=== PATIENT | male | born 1975 | race Caucasian/White ===

== ENCOUNTER → 2018-01-21 13:31 | Outpatient (CLI) | payer OTHER, SELFPAY | PROVIDERS: Family Provider Family Medicine; PCP Family Medicine; Visit Provider Physician Assistant | DX: L98.9 Disorder of the skin and subcutaneous tissue, unspecified (principal) | CPT/HCPCS: 87070; 87075; 87205 ==

== ENCOUNTER → 2019-03-25 09:58 | Outpatient (CLI) | payer OTHER, SELFPAY | PROVIDERS: Family Provider Family Medicine; PCP Family Medicine; Visit Provider Nurse Practitioner | DX: J02.9 Acute pharyngitis, unspecified (principal) | CPT/HCPCS: 87070 ==

== ENCOUNTER 2022-03-24 23:30 | Emergency (ER) | payer OTHER, MEDICAID, SELFPAY ==
[2022-03-24 23:41] VITALS: BP 134/89; PULSE 71; RESP 16; TEMP 36.4; O2SAT 98; BMI 26.3
--- NOTE | 2022-03-25 02:09 | ED.WOUNDLAC ---
HPI - Wound/Laceration General Chief Complaint: Wound/Laceration Stated Complaint: right arm pit/deep laceration injury Time Seen by Provider: 03/25/22 02:05 Source: patient Mode of arrival: Ambulatory History of Present Illness HPI narrative: This is a 47-year-old male with no reported medical issues. Patient states tetanus is up-to-date. He was doing a [employer] workout jumping up onto a box that was about 2-3 feet off the ground. He lost his balance when his foot slipped off and fell onto a squat bar that had a hook that was sharp and about 2-3 cm wide in his right axilla. Patient states he pulled himself off of that. He states it bled a little bit but not a lot at the scene. Patient states the areas painful but he denies any numbness, tingling or weakness. He denies any difficulty with movement. He denies any chest pain or shortness of breath. He denies any other symptoms he felt very lightheaded immediately after it happened when he saw the injury but states that past and he has not felt that way since then. Denies any other GI or urinary symptoms. He states he is had multiple orthopedic injuries in the past he is had stitches, he is had knee surgery and hernia surgery as a child. Patient denies allergies to medications. Denies tobacco, alcohol or illicit use currently. Related Data Previous Rx's Medication Instructions Recorded doxycycline hyclate 100 mg tablet 100 mg PO BID 7 days #14 tabs 03/25/22 tramadol 50 mg tablet 50 mg PO Q6H PRN pain #10 tabs 03/25/22 Allergies Allergy/AdvReac Type Severity Reaction Status Date / Time No Known Drug Allergies Allergy Verified 03/24/22 23:41 Review of Systems Review of Systems ROS Unobtainable: All systems reviewed & are unremarkable except as noted in HPI and below Patient History Social History Smoking Status: Former smoker Smoking Status: Former smoker Substance Use Type: does not use Exam Narrative Exam Narrative: GENERAL: Alert and oriented x three, mild distress HEENT: Head normocephalic, atraumatic, EOMI, pupils reactive, face symmetric, moist mucous membranes NECK: Supple, full range of motion CARDIOVASCULAR: Regular rate and rhythm without murmurs, rubs or gallops. RESPIRATORY: Breath sounds equal bilaterally, no wheezes rales or rhonchi. ABDOMEN: Soft, nontender. Normoactive bowel sounds all 4 quadrants. No guarding or rebound, rigidity, no mass : No CVA tenderness EXTREMITIES: Normal range of motion, no clubbing or edema. Neurovascularly intact. Patient has a deep laceration of the right axilla distal to the crease, it is crescent shaped flap that is slightly irregular. Patient's goes through the subcutaneous tissue. Muscle is exposed but appears intact as well as fascial layer. I do not visualize any blood vessels, I do not visualize any tendons or ligaments and patient has full range of motion. The way the laceration lays the subcutaneous tissue appears to have pulled away from the fascia. NEUROLOGICAL: Cranial nerves II through XII grossly intact. Moving all extremities SKIN: Warm, dry, no petechiae, no rashes or lesions. Initial Vital Signs Initial Vital Signs: Vital Signs Temperature 97.6 F 03/24/22 23:41 Pulse Rate 71 03/24/22 23:41 Respiratory Rate 16 03/24/22 23:41 Blood Pressure 134/89 03/24/22 23:41 Pulse Oximetry 98 03/24/22 23:41 Oxygen Delivery Method 03/24/22 23:41 Procedures Laceration Repair Laceration 1: Site: other (right axillla) Size (cm): 5 Description: stellate, flap and irregular Depth: simple, single layer (muscle exposed but intact) Local Anesthetic: lidocaine 1%, lidocaine 2% and bupivacaine 0.5% Amount of anesthesia used (mL): 5 Pre-repair: wound explored, irrigated extensively and deep structures intact Skin layer closed with: nylon Skin layer suture size: 4-0 Number of sutures: 10 Technique: simple, interrupted Course Orders Ordered: ED Orders 03/24/22 23:47 Consult to M[employer]I SITE LEASING CONSULTANT - Office Support Assistant Stat Discontinued Medications Doxycycline Hyclate (Doxycycline Hyclate 100 Mg Tablet) 100 mg PO NOW ONE Stop: 03/25/22 03:11 Lidocaine HCl (Lidocaine 2% Inj Sdv) 10 ml INJ INTRA-OP ONE Stop: 03/25/22 02:21 Tramadol HCl (Tramadol 50 Mg Prepack) 1 bottle MISC SEEINSTR ONE Stop: 03/25/22 03:11 Vital Signs Vital signs: Vital Signs - 8 hr 03/24/22 23:41 03/25/22 04:01 Temperature 97.6 F 97.2 F L Pulse Rate 71 62 Respiratory Rate 16 14 Blood Pressure 134/89 122/64 Pulse Oximetry 98 99 Oxygen Delivery Method Room Air Room Air MDM - Wound/Laceration MDM Narrative Medical decision making narrative: This is a 47-year-old male comes emergency department with complaint of laceration his right axilla it is quite deep the muscle actually appears intact although I can clearly visualize it and is through the skin subcutaneous tissue. Patient started on antibiotics as he seems to be high-risk for infection based on the location, laceration came together quite nicely but because of the area we discussed extensively appropriate range of motion while skin is healing and that he needs to keep his range of motion decreased for the next 3-4 weeks to allow the deeper tissue to heal. We did discuss return precautions. All questions answered. Discharge Plan Departure Patient Disposition: Home Clinical Impression: Laceration of axilla, right Instructions: DI for Laceration Repair Activity Restrictions/Additional Instructions: You have a deep laceration/cut to your right armpit, please follow-up to have her sutures removed in the next 7-10 days. Do not abduct your arm above 45 degrees until your laceration has healed or make large or fast motions at the shoulder. Take antibiotics until completely gone. You can take Tylenol up to a 1000 mg every 6 hours and/or ibuprofen up to 600 mg every 6 hours as needed for pain. If in adequate you can You may take tramadol 1 or 2 tablets every 6 hours as needed for pain. Prescription sent to [facility] pharmacy. Wound Care: Keep wound(s) clean and dry. Wash daily with soap and water only. Do not use over the counter products (alcohol or peroxide)on the wounds unless instructed by a physician. If wound condition worsens (increased/expanding redness, developing fluid blisters, or worsening pain), either contact your doctor for an urgent re-assessment , or return to the Emergency Department. Return to the Emergency Department for any new or worsening symptoms. Return to the ED, urgent care, or vist a primary care doctor for removal or suture or carlos in 7-10 days Return if fever greater than 100.4 Fahrenheit, increased swelling, increasing pain or worsening symptoms such as increased discharge or spreading redness. Prescriptions: New doxycycline hyclate 100 mg tablet 100 mg PO BID 7 Days Qty: 14 0RF tramadol 50 mg tablet 50 mg PO Q6H PRN (Reason: pain) Qty: 10 0RF Referrals: Miscellaneous,Doctor, MD [Primary Care Provider] - Visit Report Forms: Patient Portal/API
[2022-03-25 04:01] VITALS: BP 122/64; PULSE 62; RESP 14; TEMP 36.2; O2SAT 99
== END 2022-03-25 03:40 | disposition home or self-care (01) ==
PROVIDERS: Emergency Provider Emergency Medicine; Family Provider Family Medicine
DX: S41.111A Laceration without foreign body of right upper arm, initial encounter (principal); W17.89XA Other fall from one level to another, initial encounter
CPT/HCPCS: 12002; 99283

== ENCOUNTER 2022-04-11 10:09 | Emergency (ER) | payer OTHER, MEDICAID, SELFPAY ==
[2022-04-11 10:33] VITALS: BP 110/62; PULSE 60; RESP 15; TEMP 36.5; O2SAT 98; BMI 26.3
--- NOTE | 2022-04-11 10:39 | ED.RECABL ---
HPI - Recheck/Abnormal Lab/Rx General Chief Complaint: Recheck/Abnormal Lab/Rx Stated Complaint: Anny removal Time Seen by Provider: 04/11/22 10:25 Source: patient Mode of arrival: Ambulatory History of Present Illness HPI narrative: 47-year-old male former smoker without chronic medical problems presents for removal of sutures that were placed here on March 25. His initial injury can be noted in that document, however he had been jumping onto a box doing cross fit and slipped and injured himself. He was evaluated, washed out thoroughly, sutures placed and on doxycycline for 7 days. He has some discomfort in the region but denies any redness or swelling, no fever or chills no drainage from the wound and is here for suture removal only. He denies any numbness, tingling or weakness of his arm. Says he had no head neck or back pain Related Data Previous Rx's Medication Instructions Recorded tramadol 50 mg tablet 50 mg PO Q6H PRN pain #10 tabs 03/25/22 Allergies Allergy/AdvReac Type Severity Reaction Status Date / Time No Known Drug Allergies Allergy Verified 04/11/22 10:33 Review of Systems Review of Systems Narrative: GENERAL: Denies chills, fatigue, malaise, fever, sweats. HEENT: Denies sinus pain, ear pain, sore throat, difficulty swallowing, dizziness. RESPIRATORY: Denies dyspnea, cough, wheezing, hemoptysis, sputum. CARDIOVASCULAR: Denies chest pain, palpitations, orthopnea, edema, GASTROINTESTINAL: Denies nausea, vomiting, abdominal pain, diarrhea, constipation, melena. : Denies dysuria, frequency, incontinence, hematuria, urinary retention. MUSCULOSKELETAL: denies weakness, joint pain, or bony pain SKIN: See HPI NEUROLOGIC: Denies weakness, headache, numbness, change in speech, confusion, seizures, incoordination. PSYCHIATRIC: No concerning psychosocial issues. 12 point review of systems is negative except for those stated above Patient History Social History Smoking Status: Former smoker Smoking Status: Former smoker alcohol intake frequency: holidays/special occasions only Substance Use Type: does not use Exam Narrative Exam Narrative: GEN: AOx3 and in mild distress EYES: Pupils are equal, round, and reactive to light and accommodation. Extraoccular muscles are intact bilaterally. There is no subconjunctival hemorrhage or exudate. CHEST: Lungs are clear to auscultation bilaterally and free of wheezes, rales, or rhonchi. Heart rate is regular rhythm, there are no murmurs, clicks, rubs, or gallops. There is no chest wall tenderness. ABD: Abdomen is soft and nontender. There is no guarding or rebound. Bowel sounds are normal in all 4 quadrants. There is no mass or organomegaly. EXT: Right axilla with appropriately healing wound, no dehiscence, redness, warmth, drainage, induration or fluctuance. No lymphangitis. Very reassuring exam. Full painless ROM of all extremities with no loss of sensation or strength. SKIN: Warm, pink, and dry. No erythema or rash Initial Vital Signs Initial Vital Signs: Vital Signs Temperature 97.7 F 04/11/22 10:33 Pulse Rate 60 04/11/22 10:33 Respiratory Rate 15 04/11/22 10:33 Blood Pressure 110/62 04/11/22 10:33 Pulse Oximetry 98 04/11/22 10:33 Oxygen Delivery Method 04/11/22 10:33 Course Course Course Narrative: Sutures appropriate for removal Vital Signs Vital signs: Vital Signs - 8 hr 04/11/22 10:33 Temperature 97.7 F Pulse Rate 60 Respiratory Rate 15 Blood Pressure 110/62 Pulse Oximetry 98 Oxygen Delivery Method Room Air MDM - Recheck/Abnormal Lab/Rx MDM Narrative Medical decision making narrative: 47-year-old male returns for suture removal after they had been placed here on March 25 Patient reports no complaints, no redness, drainage Sutures appropriate for removal, easily taken out by nursing staff Patient understands and agrees with diagnosis and plan. Return precautions given and questions answered to their apparent satisfaction Discharge Plan Departure Patient Disposition: Home Clinical Impression: Laceration of axilla, right, Encounter for removal of sutures Instructions: DI for Suture Removal Activity Restrictions/Additional Instructions: *You have been diagnosed with [wound check right axilla laceration] *What to do: *Please continue to take your regular medications as directed. Please keep the wound clean and dry to the best of your ability. Please monitor for signs of infection such as redness to the skin or increasing pain. *Return to Emergency Department if you should have any new, worsening or concerning symptoms, such as [fever greater than 101 F, shaking chills, worsening pain, persistent vomiting or other bothersome symptoms] Prescriptions: No Action tramadol 50 mg tablet 50 mg PO Q6H PRN (Reason: pain) Qty: 10 0RF Referrals: Miscellaneous,Doctor, MD [Primary Care Provider] - Stand Alone Forms: Patient Portal/API
== END 2022-04-11 10:55 | disposition home or self-care (01) ==
PROVIDERS: Emergency Provider Emergency Medicine; Family Provider Family Medicine
DX: Z48.1 Encounter for planned postprocedural wound closure (principal)
CPT/HCPCS: 99281

== ENCOUNTER → 2022-04-18 08:50 | Outpatient (CLI) | payer OTHER, SELFPAY ==
--- NOTE | 2022-04-18 08:54 | DI.RAD.S_ITS ---
PROCEDURE: XR CERVICAL SPINE 2V OR 3V INDICATIONS: neck and right shoulder pain TECHNIQUE: 3 view(s) of the cervical spine were acquired. COMPARISON: [facility], CERVICAL SPINE 2 OR 3 VIEWS, 08/19/2014, 12:42. [facility], CR, CLAVICLE RIGHT 2 VIEWS, 11/10/2007, 9:06. FINDINGS: Bones: No fractures or dislocations to the C7-T1 level. The lateral masses of C1 appear intact on the odontoid view. No suspicious bony lesions. There is moderate disc space narrowing at C4-5, C5-6, C6-7. Soft tissues: No prevertebral soft tissue swelling. IMPRESSION: Mid cervical spine disc space narrowing. Dictated by: Yue Naylor M.D. on 04/18/2022 at 18:24 Approved by: Yue Naylor M.D. on 04/18/2022 at 18:25
--- NOTE | 2022-04-18 08:54 | DI.RAD.S_ITS ---
PROCEDURE: XR SHOULDER RT MIN 2V INDICATIONS: neck and right shoulder pain TECHNIQUE: 3 views of the shoulder were acquired. COMPARISON: None. FINDINGS: Bones: No fractures or dislocations. No suspicious bony lesions. Visualized ribs appear intact. Moderate acromioclavicular narrowing. Soft tissues: No suspicious soft tissue calcifications. IMPRESSION: Mild acromioclavicular narrowing. Dictated by: Yue Naylor M.D. on 04/18/2022 at 18:26 Approved by: Yue Naylor M.D. on 04/18/2022 at 18:27
== END ==
PROVIDERS: Family Provider Family Medicine; Referring Provider Internal Medicine Cardiovascular Disease; Visit Provider Internal Medicine Cardiovascular Disease
DX: M25.511 Pain in right shoulder (principal); M54.2 Cervicalgia; M48.02 Spinal stenosis, cervical region
CPT/HCPCS: 72040; 73030

== ENCOUNTER 2022-09-26 14:33 | Emergency (ER) | payer OTHER, MEDICAID, SELFPAY ==
[2022-09-26 14:33] VITALS: BP 188/78; PULSE 130; RESP 22; TEMP 36.5; O2SAT 100
--- NOTE | 2022-09-26 14:54 | DI.CT.S_ITS ---
PROCEDURE: CT HEAD/BRAIN WO CON INDICATIONS: altered mental status, possible head injury TECHNIQUE: Noncontrast 4.5 mm thick angled axial sections acquired from the foramen magnum to the vertex, with coronal and sagittal reformats. For radiation dose reduction, the following was used: automated exposure control, adjustment of mA and/or kV according to patient size. COMPARISON: None. FINDINGS: Image quality: Excellent. CSF spaces: Basal cisterns are patent. No extra-axial fluid collections. Ventricles are normal in size and shape. Brain: No midline shift. No intracranial masses or hemorrhage. Wheeler-white matter interface is normal. Skull and face: Calvarium and visualized facial bones are intact, without suspicious lesions. Sinuses: Visualized sinuses and mastoids are clear. IMPRESSION: Normal noncontrast head CT, without acute intracranial hemorrhage or other significant acute findings. Dictated by: Franklin Jensen M.D. on 09/26/2022 at 15:30 Approved by: Franklin Jensen M.D. on 09/26/2022 at 15:31
[2022-09-26] MEDS: HALOPERIDOL 5 MG/ML VIAL IM (14:57)
[2022-09-26] MEDS: LORazepam 2 MG/ML INJ IM (14:58)
[2022-09-26] MEDS: diphenhydrAMINE 50 MG/ML VIAL IM (14:58)
[2022-09-26 15:33] LABS: Add Manual Diff / Slide Review NO; Basophils Absolute Auto 100 /uL (0-100); Basophils Percent Auto 0.3 % (0-2); Eosinophils Absolute Auto 0 /uL (0-450); Eosinophils Percent Auto 0.1 % (2-4); Hematocrit 37.3 % (41-53); Hemoglobin 12.8 g/dL (13.5-17.5); Lymphocytes Absolute Auto 1500 /uL (1100-4500); Lymphocytes Percent Auto 10.3 % (25-40); Mean Corpuscular HGB Conc 34.4 % (30-36); Mean Corpuscular Hemoglobin 30.7 PG (26-34); Mean Corpuscular Volume 89.2 fL (80-100); Monocytes Absolute Auto 1100 /uL (0-900); Monocytes Percent Auto 7.7 % (3-14); Neutrophils Absolute Auto 11900 /uL (1500-7000); Neutrophils Percent Auto 81.6 % (50-75); Platelet Count 394 X10^3/uL (150-400); Red Blood Cell Count 4.18 X10^6/uL (4.5-5.9); Red Cell Distribution Width 13.4 % (11.6-14.8); White Blood Cell Count 14.6 X10^3/uL (4.5-11.0)
[2022-09-26 15:34] VITALS: BP 125/99; PULSE 122; RESP 20; O2SAT 99
[2022-09-26 15:49] LABS: Acetaminophen < 10 ug/mL (10-30); Albumin 4.7 g/dL (3.5-5.0); Albumin Globulin Ratio 1.7 (1.0-2.8); Alkaline Phosphatase 74 U/L (38-126); Aspartate Aminotransferase 83 IU/L (17-59); BUN Creatinine Ratio 15.5 (6-22); Bilirubin Total 0.8 mg/dL (0.2-1.3); Blood Urea Nitrogen 18 mg/dL (9-20); Calcium 9.4 mg/dL (8.4-10.2); Carbon Dioxide 26 mmol/L (22-32); Chloride 99 mmol/L (98-107); Estimated Glomerular Filt Rate > 60 mL/min (>60); Ethanol (ETOH) < 10 mg/dL; Globulin 2.7 g/dL (1.7-4.1); Glucose 164 mg/dL (70-100); HEMOLYSIS < 15 (0-50); Potassium 3.5 mmol/L (3.4-5.1); Salicylate < 1.0 mg/dL (<20); Sodium 139 mmol/L (137-145); Total Protein 7.4 g/dL (6.3-8.2)
[2022-09-26 15:55] LABS: Alanine Aminotransferase 78 IU/L (<50)
[2022-09-26 16:03] LABS: Appearance Urine UA CLEAR; Bilirubin Urine UA NEGATIVE (NEGATIVE); Color Urine UA YELLOW; Glucose Urine UA NEGATIVE (Negative); Ketones Urine UA TRACE (NEGATIVE); Leukocyte Esterase Urine UA NEGATIVE (NEGATIVE); Nitrite Urine UA NEGATIVE (Negative); Occult Blood Urine UA NEGATIVE (Negative); Protein Urine UA NEGATIVE (Negative); Urobilinogen Urine UA 0.2 E.U./dL (0.2)
[2022-09-26 16:08] LABS: UR Morphine/Opiate cutoff 300 Negative (Negative); Ur Creatinine Normal (Normal); Ur Specific Gravity Normal (Normal); Urine Amphetamines Negative (Negative); Urine Barbiturates Negative (Negative); Urine Benzodiazepines Negative (Negative); Urine Cocaine Negative (Negative); Urine MDMA Negative (Negative); Urine Methadone Negative (Negative); Urine Methamphetamines Negative (Negative); Urine Oxycodone Negative (Negative); Urine Phencyclidine Negative (Negative); Urine Tetrahydrocannabinol Positive (Negative); Urine Tricyclic Antidepressant Negative (Negative); Urine pH Normal (Normal)
[2022-09-26 16:11] LABS: Bacteria Urine None Seen; RBC Urine None Seen (0-5/HPF); Squamous Epithelial Cell Urine 0-1 /HPF (0-5/HPF); WBC Urine 0-1/HPF (0-5/HPF)
[2022-09-26 16:12] LABS: Culture Indicated Urine Cult Not Indicated; Hyaline Casts Urine 5-10/LPF
[2022-09-26 16:19] LABS: TSH w/ Reflex to FT4 0.68 uIU/mL (0.47-4.68)
--- NOTE | 2022-09-26 16:30 | PC.NURSE ---
Pt transported to CT with kwabena, RN, and mail officer. Pt calm and cooperative throughout process. Returned to room. Pt sleeping, rouses to voice. Pt answers questions appropriately but pt is highly verbal with tangential, incongruous speech
--- NOTE | 2022-09-26 17:02 | ED.PSYCH ---
HPI - Psych General Chief Complaint: Psychiatric Symptoms Stated Complaint: Fit for Halfway Time Seen by Provider: 09/26/22 14:37 Source: EMS and police Mode of arrival: EMS History of Present Illness HPI Narrative: 39-year-old male former smoker with prior psychiatric history and evaluations for psychosis presents in police custody with EMS for evaluation of altered mental status and fitness for detention. He was found waving a large knife and threatening to injure neighbors. He was speaking rapidly, talking about cheeses instructing him to behave as he was. He was aggressive with EMS and arrives in handcuffs. There is no report of any significant trauma or injury, they are very superficial abrasions on his left wrist adjacent to handcuffs. Related Data Home Medications Medication Instructions Recorded Confirmed No Known Home Medications 09/26/22 09/26/22 Allergies Allergy/AdvReac Type Severity Reaction Status Date / Time No Known Drug Allergies Allergy Verified 09/26/22 15:35 Review of Systems Review of Systems Narrative: GENERAL: Denies chills, fatigue, malaise, fever, sweats. HEENT: Denies sinus pain, ear pain, sore throat, difficulty swallowing, dizziness. RESPIRATORY: Denies dyspnea, cough, wheezing, hemoptysis, sputum. CARDIOVASCULAR: Denies chest pain, palpitations, orthopnea, edema, GASTROINTESTINAL: Denies nausea, vomiting, abdominal pain, diarrhea, constipation, melena. : Denies dysuria, frequency, incontinence, hematuria, urinary retention. MUSCULOSKELETAL: denies weakness, joint pain, or bony pain SKIN: Denies rash, skin lesions, or other NEUROLOGIC: Denies weakness, headache, numbness, change in speech, confusion, seizures, incoordination. PSYCHIATRIC: See HPI 12 point review of systems is negative except for those stated above Patient History Social History Smoking Status: Former smoker Smoking Status: Former smoker alcohol intake frequency: holidays/special occasions only Substance Use Type: unknown Exam Narrative Exam Narrative: GENERAL: [47] year old patient appears stated age. Well-developed patient, in obvious distress, screaming, rapid speech, diaphoretic, very resistant to any evaluation HEAD: Atraumatic. Normocephalic. No obvious abrasion, contusion or laceration EYES: Pupils equal round and reactive. Extraocular motions intact. No scleral icterus. No injection or drainage. ENT: Mucous membranes are moist Nose without bleeding, purulent drainage. Throat without erythema, tonsillar hypertrophy or exudate. Airway patent. NECK: Trachea midline. Non tender CARDIOVASCULAR: Tachycardic but regular rhythm without murmurs, gallops, or rubs. RESPIRATORY: Clear to auscultation. Breath sounds equal bilaterally. No wheezes, rales, or rhonchi. GASTROINTESTINAL: Abdomen soft, non-tender, nondistended. EXTREMITIES: No edema or joint tenderness. BACK: Nontender without deformity or crepitance. No flank tenderness. NEURO: AOx3. SKIN: No rash or erythema of visible areas, diaphoretic Initial Vital Signs Initial Vital Signs: Vital Signs Temperature 97.7 F 09/26/22 14:33 Pulse Rate 130 H 09/26/22 14:33 Respiratory Rate 22 09/26/22 14:33 Blood Pressure 188/78 H 09/26/22 14:33 Pulse Oximetry 100 09/26/22 14:33 Oxygen Delivery Method Room Air 09/26/22 14:33 Course Course Course Narrative: 1430 -patient with very bizarre behavior, pressured speech, keeps speaking about cheeses and how we do not understand. Resistant to any interaction, multiple attempts at verbal deescalation are unsuccessful. Patient administered medications to allow complete evaluation Orders Ordered: Discontinued Medications Diphenhydramine HCl (Diphenhydramine 50 Mg/Ml Vial) 50 mg IM NOW ONE Stop: 09/26/22 14:38 Last Admin: 09/26/22 14:58 Dose: 50 mg Documented By: ST Haloperidol (Haloperidol 5 Mg/Ml Vial) 5 mg IM NOW ONE Stop: 09/26/22 14:38 Last Admin: 09/26/22 14:57 Dose: 5 mg Documented By: ST Lorazepam (Lorazepam 2 Mg/Ml Inj) 2 mg IM NOW ONE Stop: 09/26/22 14:38 Last Admin: 09/26/22 14:58 Dose: 2 mg Documented By: ST Vital Signs Vital signs: Vital Signs - 8 hr 09/26/22 14:33 09/26/22 15:34 Temperature 97.7 F Pulse Rate 130 H 122 H Respiratory Rate 22 20 Blood Pressure 188/78 H 125/99 H Pulse Oximetry 100 99 Oxygen Delivery Method Room Air Room Air MDM - Psych Lab Data 09/26/22 15:28 09/26/22 15:28 Labs: Lab Results 09/26/22 09/26/22 09/26/22 Range/Units 15:28 15:28 15:28 WBC 14.6 H (4.5-11.0) X10^3/uL RBC 4.18 L (4.5-5.9) X10^6/uL Hgb 12.8 L (13.5-17.5) g/dL Hct 37.3 L (41-53) % MCV 89.2 (80-100) fL MCH 30.7 (26-34) PG MCHC 34.4 (30-36) % RDW 13.4 (11.6-14.8) % Plt Count 394 (150-400) X10^3/uL Neut % (Auto) 81.6 H (50-75) % Lymph % (Auto) 10.3 L (25-40) % [place] % (Auto) 7.7 (3-14) % Eos % (Auto) 0.1 L (2-4) % Baso % (Auto) 0.3 (0-2) % Neut # (Auto) 87688 H (6053-6081) /uL Lymph # (Auto) 1500 (1533-8415) /uL [place] # (Auto) 1100 H (0-900) /uL Eos # (Auto) 0 (0-450) /uL Baso # (Auto) 100 (0-100) /uL Sodium 139 (137-145) mmol/L Potassium 3.5 (3.4-5.1) mmol/L Chloride 99 (98-107) mmol/L Carbon Dioxide 26 (22-32) mmol/L BUN 18 (9-20) mg/dL Creatinine 1.16 (0.66-1.25) mg/dL Estimated GFR > 60 (>60) mL/min BUN/Creatinine Ratio 15.5 (6-22) Glucose 164 H (70-100) mg/dL Calcium 9.4 (8.4-10.2) mg/dL Total Bilirubin 0.8 (0.2-1.3) mg/dL AST 83 H (17-59) IU/L ALT 78 H (<50) IU/L Alkaline Phosphatase 74 (38-126) U/L Total Protein 7.4 (6.3-8.2) g/dL Albumin 4.7 (3.5-5.0) g/dL Globulin 2.7 (1.7-4.1) g/dL Albumin/Globulin Ratio 1.7 (1.0-2.8) TSH 0.68 (0.47-4.68) uIU/mL Urine Color Urine Appearance Urine pH (4.5-8.0) Ur Specific [place] (1.000-1.035) Urine Protein (Negative) Urine Glucose (UA) (Negative) g/dL Urine Ketones (NEGATIVE) Urine Occult Blood (Negative) Urine Nitrate (Negative) Urine Bilirubin (NEGATIVE) Urine Urobilinogen (0.2) E.U./dL Ur Leukocyte Esterase (NEGATIVE) Urine RBC (0-5/HPF) Urine WBC (0-5/HPF) Ur Squamous Epith Cells (0-5/HPF) Urine Bacteria (None) Hyaline Casts (None) Ur Culture Indicated? Salicylates < 1.0 (<20) mg/dL U Opiates 300ng/mL cut (Negative) Ur Oxycodone Screen (Negative) Urine Methadone Screen (Negative) Acetaminophen < 10 (10-30) ug/mL Ur Barbiturates Screen (Negative) U Tricyclic Antidepress (Negative) Ur Phencyclidine Scrn (Negative) Ur Amphetamines Screen (Negative) U Methamphetamines Scrn (Negative) Ur MDMA Scrn (Ecstasy) (Negative) U Benzodiazepines Scrn (Negative) Urine Cocaine Screen (Negative) U Marijuana (THC) Screen (Negative) Ethyl Alcohol < 10 ( - 10) mg/dL 09/26/22 09/26/22 Range/Units 15:30 15:30 WBC (4.5-11.0) X10^3/uL RBC (4.5-5.9) X10^6/uL Hgb (13.5-17.5) g/dL Hct (41-53) % MCV (80-100) fL MCH (26-34) PG MCHC (30-36) % RDW (11.6-14.8) % Plt Count (150-400) X10^3/uL Neut % (Auto) (50-75) % Lymph % (Auto) (25-40) % [place] % (Auto) (3-14) % Eos % (Auto) (2-4) % Baso % (Auto) (0-2) % Neut # (Auto) (1375-0078) /uL Lymph # (Auto) (5062-8792) /uL [place] # (Auto) (0-900) /uL Eos # (Auto) (0-450) /uL Baso # (Auto) (0-100) /uL Sodium (137-145) mmol/L Potassium (3.4-5.1) mmol/L Chloride (98-107) mmol/L Carbon Dioxide (22-32) mmol/L BUN (9-20) mg/dL Creatinine (0.66-1.25) mg/dL Estimated GFR (>60) mL/min BUN/Creatinine Ratio (6-22) Glucose (70-100) mg/dL Calcium (8.4-10.2) mg/dL Total Bilirubin (0.2-1.3) mg/dL AST (17-59) IU/L ALT (<50) IU/L Alkaline Phosphatase (38-126) U/L Total Protein (6.3-8.2) g/dL Albumin (3.5-5.0) g/dL Globulin (1.7-4.1) g/dL Albumin/Globulin Ratio (1.0-2.8) TSH (0.47-4.68) uIU/mL Urine Color Yellow Urine Appearance Clear Urine pH 6.0 (4.5-8.0) Ur Specific [place] 1.010 (1.000-1.035) Urine Protein Negative (Negative) Urine Glucose (UA) Negative (Negative) g/dL Urine Ketones Trace H (NEGATIVE) Urine Occult Blood Negative (Negative) Urine Nitrate Negative (Negative) Urine Bilirubin Negative (NEGATIVE) Urine Urobilinogen 0.2 (0.2) E.U./dL Ur Leukocyte Esterase Negative (NEGATIVE) Urine RBC None seen (0-5/HPF) Urine WBC 0-1/hpf (0-5/HPF) Ur Squamous Epith Cells 0-1 /hpf (0-5/HPF) Urine Bacteria None seen (None) Hyaline Casts 5-10/lpf (None) Ur Culture Indicated? Cult not indicated Salicylates (<20) mg/dL U Opiates 300ng/mL cut Negative (Negative) Ur Oxycodone Screen Negative (Negative) Urine Methadone Screen Negative (Negative) Acetaminophen (10-30) ug/mL Ur Barbiturates Screen Negative (Negative) U Tricyclic Antidepress Negative (Negative) Ur Phencyclidine Scrn Negative (Negative) Ur Amphetamines Screen Negative (Negative) U Methamphetamines Scrn Negative (Negative) Ur MDMA Scrn (Ecstasy) Negative (Negative) U Benzodiazepines Scrn Negative (Negative) Urine Cocaine Screen Negative (Negative) U Marijuana (THC) Screen Positive H (Negative) Ethyl Alcohol ( - 10) mg/dL MDM Narrative Medical decision making narrative: 39-year-old male brought by police and EMS for abnormal behavior in high-risk concerns as he was waving a knife at neighbors. Initially very agitated, combative and resistant to any interaction. Decision was made to administer Benadryl, Haldol, Ativan after multiple attempts at verbal deescalation proved unsuccessful. Patient was at risk for himself and others and this was presenting appropriate physical exam, labs, imaging as needed to rule out any serious underlying medical abnormalities. He responded quite well to the medications as noted and as appropriate restraints were removed. He demonstrated clear thoughts, was awake, alert and oriented, speaking clearly and nonpressured, demonstrate insight. Labs are unremarkable, CT of his head is unremarkable. No further investigation needed. Patient appropriate for discharge into police custody Restraint [id number] Restraint [id number] Evaluation [id number]-[id number] #1: Date: 09/26/22 Time: 14:35 Patient Appearance: Unkempt, Disheveled and Bizarre Level of Consciousness: Alert, Combative, Inappropriate and Restless Speech Pattern: Animated and Pressured Mood Description: Hostile Ability to Follow Directions: Poor Hallucination Type: Auditory Thought Process: Disorganized Respirations: Normal respiratory rate Cardiac: Regular Rhythm (tachy) Circulation: Moves all extremities Behavior necessitating restraint: Agitated, Escalating verbal abuse and Paranoid/Delusional Restraint Risks: Airway obstruction, Restricted blood flow, Damaged nerves and Damaged tissue Discharge Plan Departure Patient Disposition: Home Clinical Impression: Medical clearance for incarceration, Psychosis Instructions: DI for Psychosis Activity Restrictions/Additional Instructions: *You have been diagnosed with [acute psychosis resolved, medical clearance for incarceration] *What to do: *Please continue to take your regular medications as directed. [ ] New medication prescriptions sent to your pharmacy: [ ] [ ] New medication written as a paper prescription [ ] No new medications given *Please follow up with your primary care provider in 2-3 days, call for an appointment. Let them know you were seen in the Emergency Department and that we ask that you be seen in follow up. We will electronically transmit a record of today's note if your PCP is in our system *If you do not have a primary care provider please contact the [facility] Resource line at [phone]. They will ask some questions about your medical history and help get you set up with a doctor in the community. *Return to Emergency Department if you should have any new, worsening or concerning symptoms, such as [fever greater than 101 F, shaking chills, worsening pain, persistent vomiting or other bothersome symptoms] Prescriptions: No Action No Known Home Medications Referrals: Miscellaneous,Doctor, MD [Primary Care Provider] - Stand Alone Forms: Patient Portal/API
[2022-09-26 17:33] VITALS: BP 124/80; PULSE 98; RESP 16; O2SAT 99
== END 2022-09-26 17:44 | disposition home or self-care (01) ==
PROVIDERS: Emergency Provider Emergency Medicine; Family Provider Family Medicine
DX: F29 Unspecified psychosis not due to a substance or known physiological condition (principal); Z00.8 Encounter for other general examination; R41.82 Altered mental status, unspecified
CPT/HCPCS: 36415; 70450; 80053; 80305; 80320; 80329; 81001; 84443; 85025; 93005; 96372; 99285; G0480; J1200; J1630; J2060

== ENCOUNTER → 2023-05-23 10:08 | Outpatient (CLI) | payer OTHER, MEDICAID, SELFPAY ==
[2023-05-25 08:07] LABS: Valproic Acid (Depakene) Total 65 ug/mL (50-100)
== END ==
PROVIDERS: Family Provider Family Medicine; PCP Family Medicine; Referring Provider Nurse Practitioner Psychiatric/Mental Health; Visit Provider Nurse Practitioner Psychiatric/Mental Health
DX: F39 Unspecified mood [affective] disorder (principal)
CPT/HCPCS: 36415; 80164

== ENCOUNTER → 2023-05-29 12:33 | Outpatient (CLI) | payer OTHER, MEDICAID, SELFPAY ==
[2023-05-29 13:42] LABS: Hemoglobin A1C% w Est Avg Glu 5.5 % (4.0-6.0)
[2023-05-29 13:55] LABS: Alanine Aminotransferase 95 IU/L (<50); Albumin Globulin Ratio 1.6 (1.0-2.8); Alkaline Phosphatase 48 U/L (38-126); Aspartate Aminotransferase 73 IU/L (17-59); BUN Creatinine Ratio 18.8 (6-22); Bilirubin Total 0.5 mg/dL (0.2-1.3); Blood Urea Nitrogen 15 mg/dL (9-20); Calcium 8.9 mg/dL (8.4-10.2); Carbon Dioxide 27 mmol/L (22-32); Chloride 102 mmol/L (98-107); Cholesterol 172 mg/dL (140-199); Estimated Glomerular Filt Rate > 60 mL/min (>60); Globulin 2.5 g/dL (1.7-4.1); Glucose 87 mg/dL (70-100); HDL Cholesterol 31 mg/dL (40-60); HEMOLYSIS < 15 (0-50); LDL Cholesterol Calculated 99 mg/dL (<100); Sodium 137 mmol/L (137-145); Total Protein 6.5 g/dL (6.3-8.2); Triglycerides 209 mg/dL (35-150)
[2023-05-29 14:22] LABS: TSH w/ Reflex to FT4 2.03 uIU/mL (0.47-4.68)
== END ==
PROVIDERS: Family Provider Family Medicine; PCP Family Medicine; Referring Provider Family Medicine; Visit Provider Family Medicine
DX: Z00.00 Encounter for general adult medical examination without abnormal findings (principal); Z13.1 Encounter for screening for diabetes mellitus; Z13.220 Encounter for screening for lipoid disorders; F29 Unspecified psychosis not due to a substance or known physiological condition; E66.9 Obesity, unspecified; Z79.899 Other long term (current) drug therapy
CPT/HCPCS: 36415; 80053; 80061; 83036; 84443

== ENCOUNTER → 2023-11-24 15:25 | Outpatient (CLI) | payer OTHER, MEDICAID, SELFPAY ==
--- NOTE | 2023-11-24 15:27 | DI.RAD.S_ITS ---
PROCEDURE: XR KNEE LT 3V INDICATIONS: left knee pain, burning TECHNIQUE: 3 views of the knee were acquired. COMPARISON: None. FINDINGS: Bones: No fractures or dislocations. No suspicious bony lesions. Prior ACL reconstruction. Mild tricompartmental knee joint space narrowing with periarticular osteophyte formation. Soft tissues: Small joint effusion. No suspicious soft tissue calcifications. IMPRESSION: 1. Mild tricompartmental knee joint degeneration and prior ACL reconstruction. If pain persists, consider cross-sectional imaging such as CT or MRI. Dictated by: Andres Perez [facility] Interpreted: Yue Naylor MD on 11/25/2023 at 19:01 Transcribed by: WAQAS on 11/25/2023 at 19:02 Approved by: Yue Naylor M.D. on 11/26/2023 at 16:45
== END ==
PROVIDERS: Family Provider Family Medicine; PCP Family Medicine; Referring Provider Family Medicine; Visit Provider Family Medicine
DX: M17.12 Unilateral primary osteoarthritis, left knee (principal); M25.562 Pain in left knee
CPT/HCPCS: 73562

== ENCOUNTER → 2023-12-16 11:35 | Outpatient (CLI) | payer OTHER, MEDICAID, SELFPAY ==
--- NOTE | 2023-12-16 11:36 | DI.RAD.S_ITS ---
PROCEDURE: XR LUMBAR SPINE 2-3V INDICATIONS: chronic, worsening back pain TECHNIQUE: 3 views of the lumbar spine were acquired. COMPARISON: None. FINDINGS: Bones: 5 [id number] vertebrae are present. There is normal bony alignment. No vertebral body compression fractures. No suspicious bony lesions. Soft tissues: Overlying bowel gas pattern is normal. No suspicious soft tissue calcifications. IMPRESSION: No acute bony abnormality. Dictated by: Benjamin Gaxoila M.D. on 12/17/2023 at 15:42 Approved by: Benjamin Gaxiola M.D. on 12/17/2023 at 15:42
--- NOTE | 2023-12-16 11:36 | DI.RAD.S_ITS ---
PROCEDURE: XR THORACIC SPINE 2V INDICATIONS: chronic, worsening back pain TECHNIQUE: 3 views of the thoracic spine were acquired. COMPARISON: None. FINDINGS: Bones: No fractures or dislocations. No suspicious bony lesions. 12 pairs of ribs are noted, and appear intact where visualized. Thoracic spine is normal in curvature and alignment. Soft tissues: No paravertebral stripe thickening. IMPRESSION: << negative thoracic spine. Dictated by: Benjamin Gaxiola M.D. on 12/17/2023 at 15:43 Approved by: Benjamin Gaxiola M.D. on 12/17/2023 at 15:43
== END ==
PROVIDERS: Family Provider Family Medicine; PCP Family Medicine; Referring Provider Family Medicine; Visit Provider Family Medicine
DX: M54.9 Dorsalgia, unspecified (principal); G89.29 Other chronic pain
CPT/HCPCS: 72070; 72100

== ENCOUNTER → 2023-12-24 15:06 | Outpatient (CLI) | payer OTHER, MEDICAID, SELFPAY ==
--- NOTE | 2023-12-24 15:30 | DI.MRI.S_ITS ---
PROCEDURE: MR KNEE LT WO CON INDICATIONS: ongoing knee pain TECHNIQUE: Noncontrast sagittal PD fast spin echo and T2 fast spin echo with fat saturation, sagittal 3-D FLASH with fat saturation; coronal T1 spin echo and PD fast spin echo with fat saturation, and axial PD fast spin echo with fat saturation through the knee. COMPARISON: [facility], CR, XR KNEE LT 3V, 11/24/2023, 14:56. FINDINGS: Image quality: Excellent; susceptibility artifact present secondary to prior ACL reconstruction. Bones: Insertional cysts are present at the tibial eminence (10/21) and at the popliteal focus (01/25). Mild subchondral marrow edema is present at the posterior nonweightbearing and weight-bearing medial femoral condyle (10/10-9).The bone marrow signal is otherwise normal. There is no acute fracture or dislocation. Joints: There is no significant knee joint effusion. There is mild-moderate knee osteoarthritis. Conspicuous osteophytes are present at the tibial eminence projecting into the intercondylar space (12/24). Additional osteophytes are present extending from the intercondylar notch (12/23). No MR evidence of intra-articular bodies. Ovalle's cyst: Trace Ovalle's cyst. Menisci: There is complete maceration and degeneration of the body and posterior horn of the medial meniscus, with tearing that extends to the posterior root attachment (01/26; 7/6-15). The remnant meniscal body is extruded by 3 mm into the medial gutter. There is a small radial tear at the posterior horn-posterior body junction of the lateral meniscus (10/28; 10/18; /21). The posterior root attachments are normal. Cruciate ligaments: The anterior cruciate ligament graft fiber orientation and signal is preserved. There is mild thinning of the posterior cruciate ligament with heterogeneity at the femoral condylar insertion (10/19). Collateral ligaments: The medial collateral ligament complex is normal. The lateral collateral ligament complex is normal. Popliteus Muscle/Tendon: The popliteus muscle and tendon are normal. Extensor mechanism: The quadriceps tendon is normal. The patellar tendon is normal. The medial and lateral patellar retinacular attachments are normal. No evidence of arthrofibrosis at the infrapatellar Hoffa's fat pad. Articular cartilage: There is full-thickness chondral delamination at the femoral trochlea (5/14). Near full-thickness chondral loss is present at the posterior weight-bearing medial compartment (10/19). Mild surface fibrillation of the posterior-medial nonweightbearing femoral condyle is present (7/6). Other: No other acute findings. IMPRESSION: 1. Status post ACL reconstruction without evidence of graft failure or arthrofibrosis. 2. Complete maceration of the body and posterior horn of the medial meniscus with extension to the posterior root attachment. 3. Small radial tear at the posterior horn-posterior body junction of the lateral meniscus. 4. Attenuated and mildly heterogenous appearance of the posterior cruciate ligament, which may be secondary to a prior partial tear and subsequent scarring/remodeling. 5. Mild-moderate knee osteoarthritis with associated reactive marrow edema and articular cartilage defects at the patellofemoral and medial compartment. Dictated by: Marco Awad M.D. on 12/25/2023 at 16:05 Approved by: Marco Awad M.D. on 12/25/2023 at 16:27
== END ==
LOC: MRI 15:06
PROVIDERS: Family Provider Family Medicine; PCP Family Medicine; Referring Provider Family Medicine; Visit Provider Family Medicine
DX: S83.242A Other tear of medial meniscus, current injury, left knee, initial encounter (principal); S83.282A Other tear of lateral meniscus, current injury, left knee, initial encounter; M17.12 Unilateral primary osteoarthritis, left knee; M25.562 Pain in left knee; Z98.890 Other specified postprocedural states
CPT/HCPCS: 73721

== ENCOUNTER → 2024-02-27 09:14 | Outpatient (CLI) | payer OTHER, MEDICAID, SELFPAY ==
[2024-02-27 10:20] LABS: Add Manual Diff / Slide Review NO; Basophils Absolute Auto 100 /uL (0-100); Basophils Percent Auto 0.6 % (0-2); Eosinophils Absolute Auto 300 /uL (0-450); Eosinophils Percent Auto 2.5 % (2-4); Hematocrit 42.1 % (41-53); Hemoglobin 14.2 g/dL (13.5-17.5); Lymphocytes Absolute Auto 2700 /uL (1100-4500); Lymphocytes Percent Auto 21.2 % (25-40); Mean Corpuscular HGB Conc 33.7 % (30-36); Mean Corpuscular Hemoglobin 30.2 PG (26-34); Mean Corpuscular Volume 89.7 fL (80-100); Monocytes Absolute Auto 600 /uL (0-900); Monocytes Percent Auto 4.6 % (3-14); Neutrophils Absolute Auto 9000 /uL (1500-7000); Neutrophils Percent Auto 71.1 % (50-75); Platelet Count 333 X10^3/uL (150-400); White Blood Cell Count 12.6 X10^3/uL (4.5-11.0)
[2024-02-27 10:30] LABS: Hemoglobin A1C% w Est Avg Glu 6.3 % (4.0-6.0)
[2024-02-27 10:38] LABS: Alanine Aminotransferase 49 IU/L (<50); Albumin 4.4 g/dL (3.5-5.0); Albumin Globulin Ratio 1.8 (1.0-2.8); Alkaline Phosphatase 64 U/L (38-126); Aspartate Aminotransferase 32 IU/L (17-59); BUN Creatinine Ratio 13.2 (6-22); Bilirubin Total 0.4 mg/dL (0.2-1.3); Blood Urea Nitrogen 10 mg/dL (9-20); Calcium 9.5 mg/dL (8.4-10.2); Carbon Dioxide 24 mmol/L (22-32); Chloride 107 mmol/L (98-107); Cholesterol 169 mg/dL (140-199); Estimated Glomerular Filt Rate > 60 mL/min (>60); Globulin 2.4 g/dL (1.7-4.1); Glucose 107 mg/dL (70-100); HDL Cholesterol 30 mg/dL (40-60); HEMOLYSIS < 15 (0-50); LDL Cholesterol Calculated 94 mg/dL (<100); Lithium 0.3 mmol/L (0.6-1.2); Potassium 4.2 mmol/L (3.4-5.1); Sodium 138 mmol/L (137-145); Total Protein 6.8 g/dL (6.3-8.2); Triglycerides 227 mg/dL (35-150)
[2024-02-27 11:10] LABS: Thyroid Stimulating Hormone 1.19 uIU/mL (0.47-4.68)
== END ==
LOC: LAB 09:17
PROVIDERS: Family Provider Family Medicine; PCP Family Medicine
DX: F39 Unspecified mood [affective] disorder (principal)
CPT/HCPCS: 36415; 80053; 80061; 80178; 83036; 84443; 85025

== ENCOUNTER 2024-05-21 09:54 | Emergency (ER) | payer OTHER, SELFPAY ==
[2024-05-21 10:00] VITALS: BP 124/81; PULSE 68; RESP 14; TEMP 36.3; O2SAT 96; BMI 29.8
--- NOTE | 2024-05-21 10:31 | PC.NURSE ---
Patient provided with a granola bar, pudding and a coffee
[2024-05-21 10:34] LABS: Add Manual Diff / Slide Review NO; Basophils Absolute Auto 100 /uL (0-100); Basophils Percent Auto 0.7 % (0-2); Eosinophils Absolute Auto 300 /uL (0-450); Eosinophils Percent Auto 2.3 % (2-4); Hematocrit 46.8 % (41-53); Hemoglobin 15.8 g/dL (13.5-17.5); Lymphocytes Absolute Auto 2200 /uL (1100-4500); Lymphocytes Percent Auto 19.6 % (25-40); Mean Corpuscular HGB Conc 33.7 % (30-36); Mean Corpuscular Hemoglobin 29.9 PG (26-34); Mean Corpuscular Volume 88.7 fL (80-100); Monocytes Absolute Auto 600 /uL (0-900); Monocytes Percent Auto 5.6 % (3-14); Neutrophils Absolute Auto 8100 /uL (1500-7000); Neutrophils Percent Auto 71.8 % (50-75); Platelet Count 339 X10^3/uL (150-400); Red Blood Cell Count 5.27 X10^6/uL (4.5-5.9); Red Cell Distribution Width 14.4 % (11.6-14.8); White Blood Cell Count 11.3 X10^3/uL (4.5-11.0)
[2024-05-21 10:36] LABS: Ur Creatinine Normal (Normal); Ur Specific Gravity Normal (Normal); Urine Amphetamines Negative (Negative); Urine Barbiturates Negative (Negative); Urine Benzodiazepines Negative (Negative); Urine Cocaine Negative (Negative); Urine MDMA Negative (Negative); Urine Methadone Negative (Negative); Urine Methamphetamines Negative (Negative); Urine Opiates Negative (Negative); Urine Oxycodone Negative (Negative); Urine Phencyclidine Negative (Negative); Urine THC Negative (Negative); Urine Tricyclic Antidepressant Negative (Negative); Urine pH Normal (Normal)
[2024-05-21 10:48] LABS: Acetaminophen < 10 ug/mL (10-30); Alanine Aminotransferase 33 IU/L (<50); Albumin 5.2 g/dL (3.5-5.0); Albumin Globulin Ratio 1.6 (1.0-2.8); Alkaline Phosphatase 65 U/L (38-126); Aspartate Aminotransferase 30 IU/L (17-59); BUN Creatinine Ratio 14.3 (6-22); Bilirubin Total 0.7 mg/dL (0.2-1.3); Blood Urea Nitrogen 14 mg/dL (9-20); Carbon Dioxide 27 mmol/L (22-32); Chloride 102 mmol/L (98-107); Estimated Glomerular Filt Rate > 60 mL/min (>60); Ethanol (ETOH) < 10 mg/dL; Globulin 3.3 g/dL (1.7-4.1); Glucose 121 mg/dL (70-100); HEMOLYSIS < 15 (0-50); Potassium 4.6 mmol/L (3.4-5.1); Salicylate < 1.0 mg/dL (<20); Sodium 139 mmol/L (137-145); Total Protein 8.5 g/dL (6.3-8.2)
[2024-05-21 11:08] LABS: Lithium 0.3 mmol/L (0.6-1.2)
[2024-05-21 11:19] LABS: COVID19 -Nasal RAPID Negative (Negative)
[2024-05-21 11:27] LABS: Free T4, Direct Thyroxine 1.26 ng/dL (0.78-2.19)
[2024-05-21 11:41] LABS: Thyroid Stimulating Hormone 1.43 uIU/mL (0.47-4.68)
--- NOTE | 2024-05-21 12:07 | ED.PSYCH ---
HPI - Psych General Chief Complaint: Psychiatric Symptoms Stated Complaint: Suicide thoughts/Anxiety Time Seen by Provider: 05/21/24 12:07 Source: patient Mode of arrival: Ambulatory History of Present Illness HPI Narrative: Patient 49-year-old male history of schizophrenia, paranoia bipolar insomnia anxiety presenting today with suicidal ideations. Reports he is [place] He previously tried to attempt to cut his carotid a number of years ago but said a better choice would be to jump off the bridge. He now feels like the thoughts are more intense. He was supposed to be taking Depakote but stopped taking that sounds like Psychiatry put him on lithium. He reports he is trying to find a job but it is hard because he has 2 felonies. He overall is calm and cooperative his mother is at bedside Would like voluntary placement. Related Data Home Medications Medication Instructions Recorded Confirmed lithium carbonate 300 mg capsule 300 mg PO ONCE PM 05/21/24 05/21/24 lorazepam 0.5 mg tablet 0.5 mg PO BID PRN anxiety 05/21/24 05/21/24 lorazepam 0.5 mg tablet 0.5 mg PO BID PRN anxiety 05/21/24 05/21/24 olanzapine 10 mg tablet 10 mg PO ONCE PM 05/21/24 05/21/24 olanzapine 2.5 mg tablet mg 05/21/24 propranolol 10 mg tablet 10 mg PO 3XD PRN anxiety 05/21/24 05/21/24 propranolol 20 mg tablet 20 mg PO BID PRN anxiety 05/21/24 05/21/24 Allergies Allergy/AdvReac Type Severity Reaction Status Date / Time No Known Drug Allergies Allergy Verified 05/21/24 10:00 Patient History Medical History (Updated 05/21/24 @ 14:37 by Krupa Shepard DO) Psychosis (02/09/15) Vision disorder Marijuana abuse Schizophrenia History of bipolar disorder Chicken pox (~1987) Depression (02/09/15) Anxiety Surgical History (Updated 06/06/23 @ 18:59 by Nadira Chaparro) Anesthesia History of hernia repair (~1985) History of ankle surgery (~2017) H/O left knee surgery (~1998) Family History (Updated 06/06/23 @ 19:00 by Nadira Chaparro) Grandfather Diabetes mellitus History of heart disease Grandmother Cancer Social History Smoking Status: Current every day smoker Smoking Status: Current every day smoker alcohol intake frequency: holidays/special occasions only Exam Initial Vital Signs Initial Vital Signs: Vital Signs Temperature 97.4 F L 05/21/24 10:00 Pulse Rate 68 05/21/24 10:00 Respiratory Rate 14 05/21/24 10:00 Blood Pressure 124/81 05/21/24 10:00 Pulse Oximetry 96 05/21/24 10:00 Oxygen Delivery Method Room Air 05/21/24 10:00 GENERAL: Alert pleasant 49-year-old male and in no acute distress. HEENT: Head atraumatic,EOMI, pupils reactive, face symmetric, moist mucous membranes CARDIOVASCULAR: No cyanosis peripheral pulses intact RESPIRATORY: No respiratory distress speaks in full sentences EXTREMITIES: Normal range of motion, no clubbing or edema. Neurovascularly intact NEUROLOGICAL: Alert and oriented x4.Normal gait and speech. Cranial nerves II through XII grossly intact. SKIN: Warm, dry, no laceration, no petechiae, no rashes or lesions. Course Orders Ordered: ED Orders 05/21/24 10:11 Consult to WAREHOUSE RECEIVER - Planer Stone Stat 05/21/24 10:19 Urine Drug Screen, Rapid Stat 05/21/24 10:20 COVID19 -Nasal RAPID Stat 05/21/24 10:30 Acetaminophen Stat Complete Blood Count AUTO DIFF Stat Comprehensive Metabolic Panel Stat Ethanol (ETOH) Stat Free T4, Direct Thyroxine Stat [place] Stat Salicylate Stat Thyroid Stimulating Hormone Stat Discontinued Medications Lorazepam (Lorazepam 0.5 Mg Tablet) 0.5 mg PO NOW ONE Stop: 05/21/24 13:12 Last Admin: 05/21/24 13:20 Dose: 0.5 mg Documented By: NIRMAL Vital Signs Vital signs: Vital Signs - 8 hr 05/21/24 10:00 05/21/24 15:41 Temperature 97.4 F L 98.5 F Pulse Rate 68 71 Respiratory Rate 14 14 Blood Pressure 124/81 120/74 Pulse Oximetry 96 96 Oxygen Delivery Method Room Air Room Air MDM - Psych Lab Data 05/21/24 10:30 05/21/24 10:30 Labs: Lab Results 05/21/24 05/21/24 05/21/24 Range/Units 10:19 10:20 10:30 WBC 11.3 H (4.5-11.0) X10^3/uL RBC 5.27 (4.5-5.9) X10^6/uL Hgb 15.8 (13.5-17.5) g/dL Hct 46.8 (41-53) % MCV 88.7 (80-100) fL MCH 29.9 (26-34) PG MCHC 33.7 (30-36) % RDW 14.4 (11.6-14.8) % Plt Count 339 (150-400) X10^3/uL Neut % (Auto) 71.8 (50-75) % Lymph % (Auto) 19.6 L (25-40) % [place] % (Auto) 5.6 (3-14) % Eos % (Auto) 2.3 (2-4) % Baso % (Auto) 0.7 (0-2) % Neut # (Auto) 8100 H (1138-8190) /uL Lymph # (Auto) 2200 (4840-1456) /uL [place] # (Auto) 600 (0-900) /uL Eos # (Auto) 300 (0-450) /uL Baso # (Auto) 100 (0-100) /uL Sodium 139 (137-145) mmol/L Potassium 4.6 (3.4-5.1) mmol/L Chloride 102 (98-107) mmol/L Carbon Dioxide 27 (22-32) mmol/L BUN 14 (9-20) mg/dL Creatinine 0.98 (0.66-1.25) mg/dL Estimated GFR > 60 (>60) mL/min BUN/Creatinine Ratio 14.3 (6-22) Glucose 121 H (70-100) mg/dL Calcium 10.0 (8.4-10.2) mg/dL Total Bilirubin 0.7 (0.2-1.3) mg/dL AST 30 (17-59) IU/L ALT 33 (<50) IU/L Alkaline Phosphatase 65 (38-126) U/L Total Protein 8.5 H (6.3-8.2) g/dL Albumin 5.2 H (3.5-5.0) g/dL Globulin 3.3 (1.7-4.1) g/dL Albumin/Globulin Ratio 1.6 (1.0-2.8) TSH 1.43 (0.47-4.68) uIU/mL Free T4 1.26 (0.78-2.19) ng/dL Salicylates < 1.0 (<20) mg/dL U Opiates 300ng/mL cut Negative (Negative) Ur Oxycodone Screen Negative (Negative) Urine Methadone Screen Negative (Negative) Acetaminophen < 10 (10-30) ug/mL Ur Barbiturates Screen Negative (Negative) U Tricyclic Antidepress Negative (Negative) Ur Phencyclidine Scrn Negative (Negative) Ur Amphetamines Screen Negative (Negative) U Methamphetamines Scrn Negative (Negative) Ur MDMA Scrn (Ecstasy) Negative (Negative) U Benzodiazepines Scrn Negative (Negative) [place] 0.3 L (0.6-1.2) mmol/L Urine Cocaine Screen Negative (Negative) U Marijuana (THC) Screen Negative (Negative) Urine pH Normal (Normal) Urine Specific [place] Normal (Normal) Ethyl Alcohol < 10 ( - 10) mg/dL Ur Creatinine Normal (Normal) SARS-CoV-2 (PCR) Negative (Negative) Urine Dip Bedside Urine Glucose Negative Bedside Urine Bilirubin - Negative Bedside Urine Ketone - Negative Urine Specific [place] 1.015 Bedside Urine Occult Blood - Negative Bedside Urine pH 6.0 Bedside Urine Protein - Negative Bedside Urine Urobilinogen - Negative Bedside Urine Nitrite - Negative Bedside Urine Leukocytes - Negative Esterase MDM Narrative Medical decision making narrative: Patient 49-year-old male with history of significant psychiatric disease is included schizophrenia paranoia presenting today with suicidal ideations. Reports daily thoughts of jumping off a bridge which seem to be getting more intense. He has a prior attempt of cutting his left carotid. Is voluntary and would like placement. He met with the psychiatric social worker supervisor. Patient was placed at [facility] Discharge Plan Departure Patient Disposition: er [facility] Clinical Impression: Suicidal ideations Prescriptions: No Action olanzapine 10 mg tablet 10 mg PO ONCE PM olanzapine 2.5 mg tablet Patient Comments: take 1 tablet by mouth daily once daily as directed IN ADDITION T... (REFER TO PRESCRIPTION NOTES). propranolol 10 mg tablet 10 mg PO 3XD PRN (Reason: anxiety) lorazepam 0.5 mg tablet 0.5 mg PO BID PRN (Reason: anxiety) lorazepam 0.5 mg tablet 0.5 mg PO BID PRN (Reason: anxiety) lithium carbonate 300 mg capsule 300 mg PO ONCE PM propranolol 20 mg tablet 20 mg PO BID PRN (Reason: anxiety) Referrals: Karolyn Kamara DO [Primary Care Provider] -
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
[2024-05-21] MEDS: LORazepam 0.5 MG TABLET PO (13:20)
--- NOTE | 2024-05-21 13:33 | CM.SWNOTE ---
ED EAR NOSE AND THROAT SPECIALIST Note With patient consent, EAR NOSE AND THROAT SPECIALIST calls patient's software database architect and informs them of patient's presentation at ED, it is reported that Maria Teresa Orantes is out of the office and won't return til Friday and they will inform her of this. EAR NOSE AND THROAT SPECIALIST calls [facility], it is reported that they are at capacity. EAR NOSE AND THROAT SPECIALIST calls [facility], it is reported that they are at capacity until Friday. Family reports preference not to search for placement at [facility]. EAR NOSE AND THROAT SPECIALIST calls [facility], it is reported that they have beds, EAR NOSE AND THROAT SPECIALIST faxes clinicals for review. Neeta at [facility] calls back and states that patient is accepted by TANISHA Thorpe at [facility] in [address] with arrival time of 1600. RN to RN ph. # is [phone]. EAR NOSE AND THROAT SPECIALIST reviews patient's acceptance with patient and mother and they indicates agreement and understanding. EAR NOSE AND THROAT SPECIALIST calls [facility] and schedules transport for 1450 with arrival time of 1700. EAR NOSE AND THROAT SPECIALIST calls [facility] to inform them of this arrival time. Plan: patient to transfer to [facility] in [place] via BLS for voluntary placement this afternoon. Sneha Mireles, RN PLACEMENT
[2024-05-21 15:41] VITALS: BP 120/74; PULSE 71; RESP 14; TEMP 36.9; O2SAT 96
== END 2024-05-21 15:10 ==
PROVIDERS: Emergency Provider Emergency Medicine; Family Provider Family Medicine; PCP Family Medicine
DX: R45.851 Suicidal ideations (principal)
CPT/HCPCS: 36415; 80053; 80178; 80305; 80320; 80329; 81003; 84439; 84443; 85025; 87635; 99284; G0480

== ENCOUNTER → 2024-07-14 08:10 | Outpatient (CLI) | payer OTHER, SELFPAY ==
[2024-07-14 08:53] LABS: Lithium 0.8 mmol/L (0.6-1.2)
[2024-07-15 00:11] LABS: Valproic Acid (Depakene) Total 84 ug/mL (50-100)
== END ==
PROVIDERS: Family Provider Family Medicine; PCP Family Medicine; Referring Provider Student in an Organized Health Care Education/Training Program; Visit Provider Student in an Organized Health Care Education/Training Program
DX: Z51.81 Encounter for therapeutic drug level monitoring (principal)
CPT/HCPCS: 36415; 80164; 80178

== ENCOUNTER → 2024-11-10 11:26 | Outpatient (CLI) | payer OTHER, SELFPAY ==
[2024-11-10 12:12] LABS: Hemoglobin A1C% w Est Avg Glu 6.3 % (4.0-6.0)
[2024-11-10 12:22] LABS: Uric Acid 6.9 mg/dL (3.5-8.5)
== END ==
PROVIDERS: PCP Family Medicine; Referring Provider Family Medicine; Visit Provider Family Medicine
DX: M79.674 Pain in right toe(s) (principal); M79.2 Neuralgia and neuritis, unspecified
CPT/HCPCS: 36415; 83036; 84550

== ENCOUNTER → 2025-01-31 07:17 | Outpatient (CLI) | payer OTHER, SELFPAY ==
--- NOTE | 2025-01-31 07:43 | DI.MRI.S_ITS ---
PROCEDURE: MR LUMBAR SPINE WO CON INDICATIONS: worsening chronic low back pain TECHNIQUE: Noncontrast sagittal T1 spin echo and T2 fast echo, sagittal STIR, and T2 fast spin echo through the lumbar spine. In cases with scoliosis, additional coronal T2 fast spin echo may be performed. COMPARISON: [facility], CR, XR LUMBAR SPINE 2-3V, 12/16/2023, 11:35. FINDINGS: Image quality: Excellent. Alignment and Curvature: There is normal bony alignment. Bone Marrow: Marrow is of normal overall signal. No acute vertebral body compression fractures. Spinal Cord: Conus medullaris terminates at the L1 level. Visualized cord demonstrates normal signal and size. Paraspinous Soft Tissues: No paravertebral masses. T12-L1: Normal disc. No foraminal or central canal stenosis. L1-L2: Normal disc. No foraminal or central canal stenosis. L2-L3: Minor circumferential disc bulge. No foraminal or central canal stenosis. L3-L4: Mild disc height loss and desiccation. Mild circumferential disc bulge. No foraminal or central canal stenosis. L4-L5: Mild circumferential disc bulge. No foraminal or central canal stenosis. L5-S1: Mild disc desiccation and posterior disc height loss. Minimal broad- based posterior disc bulge without herniation. No foraminal or central canal stenosis. IMPRESSION: No significant degenerative change to cause focal central canal or neural foraminal compromise. Dictated by: Ira Baig M.D. on 01/31/2025 at 13:45 Approved by: Ira Baig M.D. on 01/31/2025 at 13:50
[2025-01-31 08:23] LABS: Add Manual Diff / Slide Review NO; Hematocrit 43.2 % (41-53); Hemoglobin 14.6 g/dL (13.5-17.5); Lymphocytes Absolute Auto 2200 /uL (1100-4500); Mean Corpuscular HGB Conc 33.9 % (30-36); Mean Corpuscular Hemoglobin 31.0 PG (26-34); Mean Corpuscular Volume 91.5 fL (80-100); Platelet Count 271 X10^3/uL (150-400)
[2025-01-31 08:45] LABS: Lithium 0.6 mmol/L (0.6-1.2)
[2025-01-31 09:14] LABS: TSH w/ Reflex to FT4 2.76 uIU/mL (0.47-4.68)
== END ==
LOC: MRI 07:18
PROVIDERS: Student in an Organized Health Care Education/Training Program; Family Provider Family Medicine; PCP Family Medicine; Referring Provider Family Medicine; Visit Provider Family Medicine
DX: M51.360 Other intervertebral disc degeneration, lumbar region with discogenic back pain only (principal); M54.9 Dorsalgia, unspecified; G89.29 Other chronic pain; F25.0 Schizoaffective disorder, bipolar type; Z79.899 Other long term (current) drug therapy
CPT/HCPCS: 36415; 72148; 80178; 84443; 85025

== ENCOUNTER 2025-02-16 11:30 | Outpatient (RCR) | payer OTHER, SELFPAY ==
--- NOTE | 2024-12-01 15:07 | PT.OPPOC ---
Physical, Occupational & Speech Therapy At [facility] Current Diagnoses Unspecified mononeuropathy of left lower limb (12/01/24) Other chronic pain (12/01/24) Low back pain, unspecified (12/01/24) Pain in right toe(s) (12/01/24) Visit Care Team Role Provider Type Karolyn Kamara DO Attending Provider Physician Family Provider Primary Care Provider Referring Provider Specialty: Family Practice Address: [address] [place] [address], [address], [facility] Email: [email or web address] Plan Of Care PT OP: Lower Back/Lower Extremity Start: 12/01/24 09:01 Freq: Status: Active Protocol: Document 12/01/24 09:01 BL (Rec: 12/01/24 09:49 BL Laptop) Out-Patient Physical Therapy Visit Information Visit Information Visit Type Initial Evaluation Visit Start Time 09:00 Visit Stop Time 09:40 Visit Number (1) 04/16 Number of MALWARE ANALYST Visits 0 Progress Note Due 12/31/24 OP-PT Subjective Patient Comments Patient Comments Pt presents to the clinic this date with concerns for long standing low back pain that has recently been exacerbated. Pt reports difficulty with forward flexion and rotation activities, states greatest pain with washing dishes. Pt reports difficulty with walking up and down an incline due to L knee pain. Pt does endorse radiating symptoms down his R LE into the big toe that he does not think is affected by position. Pt states when he sits, his pain decreases as well as when he lays down. pt reports he is a back and side sleeper. States his goal for therapy is to decrease his low back pain. felt a pull when leaning to L Patient Reported Improving Progress Patient Questionnaires Oswestry Low Back Index Oswestry Score 50% disability Balance Tests Single Limb Standing Single Limb- Right 7 Single Limb- Left 10 Posture Evaluation Comments Posture Comments sitting: pt demos posterior pelvic tilt standing: WBOS Gait: WBOS with marlene ER of LE. Palpation Assessment Location low back Palpation Details pt point tender with deep palpation to R paraspinal area into R SI area. Lumbar Spine Range of Motion Lumbar Spine Active Percentage Testing Position Standing Flexion 100 Extension 75 Rotation Left 100 Rotation Right 100 Lateral Flexion Left 100 Lateral Flexion 100 Right Comments pain with L side bend and extension. Hip Goniometric Range of Motion Hip Measured in Degrees right Hip ROM WFL Yes left Hip ROM WFL Yes Knee Goniometric Range of Motion Knee Measured in Degrees Right Knee ROM WFL Yes Left Knee ROM WFL Yes Trunk Strength Trunk Manual Muscle Testing Testing Position Supine Flexion 4 Good Hip Strength Hip Manual Muscle Testing Right Flexion (L2) 4+ Good+ Extension (S1) 4+ Good+ Abduction 4+ Good+ Adduction 4+ Good+ External Rotation 4+ Good+ Internal Rotation 4 Good Left Flexion (L2) 4+ Good+ Extension (S1) 4+ Good+ Abduction 4+ Good+ Adduction 4+ Good+ External Rotation 4+ Good+ Internal Rotation 4 Good Knee Strength Knee Manual Muscle Testing Right Flexion (S2) 4+ Good+ Extension (L3) 5 Normal Left Flexion (S2) 4 Good Extension (L3) 4 Good Comments limited into extension due to pain Therapeutic Exercises Supine Exercises strength Supine Exercise Name Pelvic Tilt stretch Supine Exercise Name SKTC, piriformis stretch Physical Therapy Assessment Rehab Potential Rehabilitation Good Potential Evaluation Complexity Number of Personal 1-2 Factors/ Comorbidities Number of Body 3 Systems Impaired Clinical Evolving Presentation at Evaluation Impairments Impairments Activity Tolerance,Balance,Functional Activities, Functional Mobility,Gait,Pain,Posture,ROM,Sensation, Soft Tissue Mobility,Strength,Transfers Goals Three Glass Block Installer Goal (LTG) Pt will demo improved Oswestry Score to 30% disability or better by DC for improved quality of life. Two Halfway Goal (LTG) Pt will demo improved L knee flexion strength to 4+/5 by DC for improved posterior stability with ADLs. One Short Term Goal (STG pt will be ind with HEP within 2 visits in order to ) progress toward terminal gauger supervisor therapy goals outside of therapy visits Halfway Goal (LTG) Pt will demo improved pain symptoms from 6/10 at worst to 3/10 or better at worst by DC for improved quality of life. Assessment Summary Assessment Pt presents to the clinic this date with concerns for long standing low back pain. Pt demos decreased core stability along with stiffness noted to bilateral hips. The above are affecting pts ability to complete ADLS including ambulation. Pt will benefit from skilled Physical therapy intervention for strength and endurance training in order to improve functional mobility for safe return to PLOF. Physical Therapy Plan Frequency and Duration Frequency of 2x/Week Treatment Duration of 12 treatment (weeks) Plan of Care Start 12/01/24 Date Plan of Care End 02/23/25 Date Therapeutic Interventions Therapeutic Balance Training,Coordination Training,Gait Training, Interventions Home Exercise Program,Joint Mobilizations,Manual Therapy,Neuromuscular Re-education,Orthotic/Prosthetic Management,Patient/Caregiver Education,Self-Care/Home Management,Sensory Integration,Taping,Therapeutic Activities,Therapeutic Exercises Modalities Cold Pack/Ice Massage,Electric Stimulation,Hot Packs, Infrared Therapy,Iontophoresis,Ultrasound Next Visit Focus/Plan Next Note Type Treatment Note Next Visit Plan Advance HEP for L hip strength, core stability and general mobility and balance. Plan of Care Dates Plan of Care Start Date 12/01/24 Plan of Care End Date 02/23/25 Electronically Signed by: Timothy Dawson, PT 12/01/24 [id number] If you are in agreement with this Plan of Care, please return a signed and dated copy. I have reviewed this Plan of Care and certify that the skilled therapy services above are required to meet the patient?s needs. Physician Signature Date Printed Name and Credentials Clinical Instructor Signature Printed Name and Credentials
--- NOTE | 2024-12-07 13:43 | PT.OTN ---
Current Diagnoses Unspecified mononeuropathy of left lower limb (12/07/24) Other chronic pain (12/07/24) Low back pain, unspecified (12/07/24) Pain in right toe(s) (12/07/24) Physical Therapy Treatment Note PT OP: Lower Back/Lower Extremity Start: 12/01/24 09:01 Freq: Status: Active Protocol: Document 12/07/24 13:02 BL (Rec: 12/07/24 13:42 BL Laptop) Out-Patient Physical Therapy Visit Information Visit Information Visit Type Treatment Note Visit Start Time 13:00 Visit Stop Time 13:40 Visit Number (2) 2 Number of BOX MAKER PAPERBOARD Visits 0 Progress Note Due 12/31/24 Precautions Precautions L knee bone on bone OP-PT Subjective Patient Comments Patient Comments Pt presents to the clinic this date and reports he is doing ok, states symptoms about the same, reports HEP feels ok, no increase in symptoms. States his R hip feels stiff and has a cramping feeling in his thigh. Therapeutic Exercises Supine Exercises strength Supine Exercise Name Pelvic Tilt (reviewed), SL heel taps stretch Supine Exercise Name SKTC, piriformis stretch, modified candy st. Prone Exercises quadraped Prone Exercise Name cat/cow Comments 10x Sidelying Exercises ROM Sidelying Exercise Open book Name Comments 2x 10 Physical Therapy Assessment Goals Three Broadcast Maintenance Technician Goal (LTG) Pt will demo improved Oswestry Score to 30% disability or better by DC for improved quality of life. Two Longterm Goal (LTG) Pt will demo improved L knee flexion strength to 4+/5 by DC for improved posterior stability with ADLs. One Short Term Goal (STG pt will be ind with HEP within 2 visits in order to ) progress toward intermediate teacher therapy goals outside of therapy visits Broadcast Maintenance Technician Goal (LTG) Pt will demo improved pain symptoms from 6/10 at worst to 3/10 or better at worst by DC for improved quality of life. Assessment Summary Assessment Pt tolerates session well, able to advance HEP for low back mobility and hip/core stability this date. Pt demos improved symptoms following. Continue to advance per pt tolerance. Physical Therapy Plan Frequency and Duration Frequency of 2x/Week Treatment Duration of 12 treatment (weeks) Plan of Care Start 12/01/24 Date Plan of Care End 02/23/25 Date Next Visit Focus/Plan Next Note Type Treatment Note Next Visit Plan Advance HEP for L hip strength, core stability and general mobility and balance.
--- NOTE | 2024-12-09 13:43 | PT.OTN ---
Current Diagnoses Unspecified mononeuropathy of left lower limb (12/09/24) Other chronic pain (12/09/24) Low back pain, unspecified (12/09/24) Pain in right toe(s) (12/09/24) Physical Therapy Treatment Note PT OP: Lower Back/Lower Extremity Start: 12/01/24 09:01 Freq: Status: Active Protocol: Document 12/09/24 13:00 BL (Rec: 12/09/24 13:42 BL Laptop) Out-Patient Physical Therapy Visit Information Visit Information Visit Type Treatment Note Visit Start Time 13:00 Visit Stop Time 13:40 Visit Number (3) 3 Number of EXPERIMENTAL WORKER Visits 0 Progress Note Due 12/31/24 Precautions Precautions L knee bone on bone OP-PT Subjective Patient Comments Patient Comments Pt presents to the clinic this date and reports he is doing ok, states he feels his low back may be a bit looser, reports overall improvement in symptoms. States washing the dishes continue to bother him Therapeutic Exercises Supine Exercises strength Supine Exercise Name Pelvic Tilt (reviewed), SL heel taps Prone Exercises strnegth Prone Exercise Name Bird Dogs Comments limited due to pain in L knee. quadraped Prone Exercise Name cat/cow (reviewed) Comments 10x Sidelying Exercises ROM Sidelying Exercise Open book, (reviewed) Name Comments 2x 10 Other Exercises Mobility Other Exercise Name CR800 Resistance lvl 12 Comments 3 min Physical Therapy Assessment Goals Three Flight Readiness Technician Goal (LTG) Pt will demo improved Oswestry Score to 30% disability or better by DC for improved quality of life. Two [facility] Goal (LTG) Pt will demo improved L knee flexion strength to 4+/5 by DC for improved posterior stability with ADLs. One Short Term Goal (STG pt will be ind with HEP within 2 visits in order to ) progress toward shelter therapy goals outside of therapy visits [facility] Goal (LTG) Pt will demo improved pain symptoms from 6/10 at worst to 3/10 or better at worst by DC for improved quality of life. Assessment Summary Assessment Pt tolerates session well, able to advance HEP for spinal mobility, focus on core stability activities to decrease strain through lumbar spine. Advance HEP per pt tolerance. Physical Therapy Plan Frequency and Duration Frequency of 2x/Week Treatment Duration of 12 treatment (weeks) Plan of Care Start 12/01/24 Date Plan of Care End 02/23/25 Date Next Visit Focus/Plan Next Note Type Treatment Note Next Visit Plan Advance HEP for L hip strength, core stability and general mobility and balance.
--- NOTE | 2024-12-29 17:19 | PT.OTN ---
Current Diagnoses Unspecified mononeuropathy of left lower limb (12/29/24) Other chronic pain (12/29/24) Low back pain, unspecified (12/29/24) Pain in right toe(s) (12/29/24) Physical Therapy Treatment Note PT OP: Lower Back/Lower Extremity Start: 12/01/24 09:01 Freq: Status: Active Protocol: Document 12/29/24 13:11 NBM (Rec: 12/29/24 13:51 NBM Laptop) Out-Patient Physical Therapy Visit Information Visit Information Visit Type Treatment Note Visit Start Time 13:08 Visit Stop Time 13:50 Visit Number (5) 5/10 Number of OFFICE MESSENGER Visits 1 Progress Note Due 12/31/24 Precautions Precautions L knee bone on bone OP-PT Subjective Patient Comments Patient Comments Benjamin reports back pain on R side is 6/10 which is more than usual. 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 Wakes up in pain partway through night. He's been focusing on doing cat/cow and band ex' s, and being mindful to use core. Propping foot up to help low back with dishes doesn't work because of L knee pain. He's been using log roll to get in and out of bed. Therapeutic Exercises Supine Exercises strength Supine Exercise Name TrA 1. PPT 2. BKFO 3. Heel slides Side bilateral Equipment Used monitoring TrA medially to B ASIS Reps/Minutes x10 ea Comments w/ breathwork Standing Exercises resisted sidesteps Standing Exercise added to HEP Name Side bilateral Resistance Lvl 1 at ankles Equipment Used handrail Reps/Minutes 12 ft ea Comments initial cues for upright posture, smaller step, eccentric control Paloff Standing Exercise added to HEP 1. Press 2. Rotation Name Side bilateral Resistance Lvl 3 Tb Reps/Minutes x12 ea Comments initial cues for TrA and breathwork; vc w/ rotation for form Other Exercises Mobility Other Exercise Name CR800 recumbent bike Resistance lvl 12 Equipment Used seat 5>4 Comments 5 min Therapeutic Activity Therapeutic Activity sleeping ergonomics Name pt demos L sidelying and supine sleeping positions Comments Brief discussion of side support with sidelying, and pillow support under LEs when supine - Sleeping ergonomics HO given. Physical Therapy Assessment Goals Three Sales Administration Manager Goal (LTG) Pt will demo improved Oswestry Score to 30% disability or better by DC for improved quality of life. Two Detention Goal (LTG) Pt will demo improved L knee flexion strength to 4+/5 by DC for improved posterior stability with ADLs. One Short Term Goal (STG pt will be ind with HEP within 2 visits in order to ) progress toward intermodal customer service therapy goals outside of therapy visits Sales Administration Manager Goal (LTG) Pt will demo improved pain symptoms from 6/10 at worst to 3/10 or better at worst by DC for improved quality of life. Assessment Summary Assessment Benjamin presents with 6/10 back pain which improves to 5/ 10 end of session. Treatment focus on HEP review and progression. Pt is encouraged to increase use of supine core HEP, especially in morning when awakens with pain . Added resisted sidesteps and Palloff press and rotation - Lvl 1 and 3 bands given. Brief review of sleeping ergonomics and pt encouraged to trial side support in sidelying for improved spinal alignment and pain managment - HO given. Physical Therapy Plan Frequency and Duration Frequency of 2x/Week Treatment Duration of 12 treatment (weeks) Plan of Care Start 12/01/24 Date Plan of Care End 02/23/25 Date Therapeutic Interventions Therapeutic Balance Training,Coordination Training,Gait Training, Interventions Home Exercise Program,Joint Mobilizations,Manual Therapy,Neuromuscular Re-education,Orthotic/Prosthetic Management,Patient/Caregiver Education,Self-Care/Home Management,Sensory Integration,Taping,Therapeutic Activities,Therapeutic Exercises Modalities Cold Pack/Ice Massage,Electric Stimulation,Hot Packs, Infrared Therapy,Iontophoresis,Ultrasound Next Visit Focus/Plan Next Note Type Treatment Note Next Visit Plan Next: Consider sidelying clamshell. review standing HEP (resisted sidesteps, Paloff) POC: Advance HEP for L hip strength, core stability and general mobility and balance.
--- NOTE | 2025-01-05 13:01 | PT.OPPN ---
Current Diagnoses Unspecified mononeuropathy of left lower limb (01/05/25) Other chronic pain (01/05/25) Low back pain, unspecified (01/05/25) Pain in right toe(s) (01/05/25) Physical Therapy Progress Note PT OP: Lower Back/Lower Extremity Start: 12/01/24 09:01 Freq: Status: Active Protocol: Document 01/05/25 12:15 DCW (Rec: 01/05/25 13:01 DCW [id number]) Out-Patient Physical Therapy Visit Information Visit Information Visit Type Progress Note Visit Start Time 12:15 Visit Stop Time 13:00 Visit Number 6 Number of SOFTWARE ENGINEER ADVISOR Visits 0 Progress Note Due 02/04/25 Evaluation Information Evaluation Date 12/01/24 Precautions Precautions L knee bone on bone OP-PT Subjective Patient Comments Patient Comments Low back and left knee are especially sore today, notes he slept in a very soft bed last night, which he feels likely increased his back pain. Feels he hasn't really seen much progress overall. Gym Equipment Therapeutic Ball Hip/knee flexion Exercise Details Resisted hip/knee flexion Ball Size/Color Red - 55 cm Lv 3 T-band Body Position Supine LTR Exercise Details LTR Ball Size/Color Red - 55 cm Body Position Supine Therapeutic Exercises Sidelying Exercises Hip Abduction Sidelying Exercise Hip Abduction Name Side bilateral Reverse Clamshell Sidelying Exercise Reverse Clamshell Name Side bilateral Clamshell Sidelying Exercise Clamshell Name Side bilateral Sitting Exercises Hamstring Curls Sitting Exercise Hamstring Curls Name Side bilateral Resistance Lv 3 T-band Standing Exercises Hip Extension Standing Exercise Hip Extension Name Side bilateral Resistance Lv 1 resisted sidesteps Standing Exercise Resisted side-stepping Name Side bilateral Resistance Lvl 1 at ankles Equipment Used handrail Reps/Minutes 10' x4 Comments initial cues for upright posture, smaller step, eccentric control Neuro Re-Education Treatment Balance Activities Tandem Details Tandem stance Equipment // bars Foam Details Foam Stance (head turns, eyes closed) Physical Therapy Assessment Goals Three Design Engineering Manager Goal (LTG) Pt will demo improved Oswestry Score to 30% disability or better by DC for improved quality of life. Two Nursing Home Goal (LTG) Pt will demo improved L knee flexion strength to 4+/5 by DC for improved posterior stability with ADLs. One Short Term Goal (STG pt will be ind with HEP within 2 visits in order to ) progress toward long-term therapy goals outside of therapy visits Design Engineering Manager Goal (LTG) Pt will demo improved pain symptoms from 6/10 at worst to 3/10 or better at worst by DC for improved quality of life. Assessment Summary Assessment Pt has made minimal progress so far, but is feeling more optimistic today. Able to tolerate a bit more activities without pain. Should continue to do well with focus on strengthening, activity tolerance, and functional mobility. Physical Therapy Plan Frequency and Duration Frequency of 2x/Week Treatment Duration of 12 treatment (weeks) Plan of Care Start 12/01/24 Date Plan of Care End 02/23/25 Date Therapeutic Interventions Therapeutic Balance Training,Coordination Training,Gait Training, Interventions Home Exercise Program,Joint Mobilizations,Manual Therapy,Neuromuscular Re-education,Orthotic/Prosthetic Management,Patient/Caregiver Education,Self-Care/Home Management,Sensory Integration,Taping,Therapeutic Activities,Therapeutic Exercises Modalities Cold Pack/Ice Massage,Electric Stimulation,Hot Packs, Infrared Therapy,Iontophoresis,Ultrasound Next Visit Focus/Plan Next Note Type Treatment Note Next Visit Plan Next: Consider sidelying clamshell. review standing HEP (resisted sidesteps, Paloff) POC: Advance HEP for L hip strength, core stability and general mobility and balance.
--- NOTE | 2025-01-11 15:53 | PT.OTN ---
Current Diagnoses Unspecified mononeuropathy of left lower limb (01/11/25) Other chronic pain (01/11/25) Low back pain, unspecified (01/11/25) Pain in right toe(s) (01/11/25) Physical Therapy Treatment Note PT OP: Lower Back/Lower Extremity Start: 12/01/24 09:01 Freq: Status: Active Protocol: Document 01/11/25 15:15 DCW (Rec: 01/11/25 15:53 DCW [id number]) Out-Patient Physical Therapy Visit Information Visit Information Visit Type Treatment Note Visit Start Time 15:15 Visit Stop Time 16:00 Visit Number 7 Number of BUSINESS EDUCATION INSTRUCTOR Visits 0 Progress Note Due 02/04/25 Evaluation Information Evaluation Date 12/01/24 Precautions Precautions L knee bone on bone OP-PT Subjective Patient Comments Patient Comments It's not really a good day, man, I'm in just a lot of pain. Notes his low back is really bothering him, is having pain go down into his hips. Denies doing much recently, notes he has basically just been resting. Notes during his last visit, he felt pretty good, but then his back was flared up two days later. Manual Therapy Treatment Consent Patient gave verbal Yes consent for manual treatment Soft Tissue Mobilization Lumbar Body Location Lumbar paraspinals, QL, Glute Electric Stimulation Electric Stimulation Interferential Current (IFC) Body Location Low Back Intensity 16 Patient Position Sidelying Physical Therapy Assessment Impairments Impairments Activity Tolerance,Balance,Functional Activities, Functional Mobility,Gait,Pain,Posture,ROM,Sensation, Soft Tissue Mobility,Strength,Transfers Goals Three [facility] Goal (LTG) Pt will demo improved Oswestry Score to 30% disability or better by DC for improved quality of life. Two [facility] Goal (LTG) Pt will demo improved L knee flexion strength to 4+/5 by DC for improved posterior stability with ADLs. One Short Term Goal (STG pt will be ind with HEP within 2 visits in order to ) progress toward intermediate card tender therapy goals outside of therapy visits [facility] Goal (LTG) Pt will demo improved pain symptoms from 6/10 at worst to 3/10 or better at worst by DC for improved quality of life. Assessment Summary Assessment Pt quite a bit more sore today, so took session easy, focusing on some STM/manual treatment, trial of IFC for pain control. Pt did note feeling more relaxed afterward, determine how lasting effects were for pt's back next visit. Physical Therapy Plan Frequency and Duration Frequency of 2x/Week Treatment Duration of 12 treatment (weeks) Plan of Care Start 12/01/24 Date Plan of Care End 02/23/25 Date Therapeutic Interventions Therapeutic Balance Training,Coordination Training,Gait Training, Interventions Home Exercise Program,Joint Mobilizations,Manual Therapy,Neuromuscular Re-education,Orthotic/Prosthetic Management,Patient/Caregiver Education,Self-Care/Home Management,Sensory Integration,Taping,Therapeutic Activities,Therapeutic Exercises Modalities Cold Pack/Ice Massage,Electric Stimulation,Hot Packs, Infrared Therapy,Iontophoresis,Ultrasound Next Visit Focus/Plan Next Note Type Treatment Note Next Visit Plan Next: Consider sidelying clamshell. review standing HEP (resisted sidesteps, Paloff) POC: Advance HEP for L hip strength, core stability and general mobility and balance.
--- NOTE | 2025-01-17 15:56 | PT.OTN ---
Current Diagnoses Unspecified mononeuropathy of left lower limb (01/17/25) Other chronic pain (01/17/25) Low back pain, unspecified (01/17/25) Pain in right toe(s) (01/17/25) Physical Therapy Treatment Note PT OP: Lower Back/Lower Extremity Start: 12/01/24 09:01 Freq: Status: Active Protocol: Document 01/17/25 15:15 DCW (Rec: 01/17/25 15:55 DCW [id number]) Out-Patient Physical Therapy Visit Information Visit Information Visit Type Treatment Note Visit Start Time 15:15 Visit Stop Time 16:00 Visit Number 8 Number of GUM ROLLING MACHINE TENDER Visits 0 Progress Note Due 02/04/25 Evaluation Information Evaluation Date 12/01/24 Precautions Precautions L knee bone on bone OP-PT Subjective Patient Comments Patient Comments Pt reports his low back is doing quite a bit better after the E-stim last week. Notes the relief lasted a long time. Still pretty sore through his legs. Manual Therapy Treatment Consent Patient gave verbal Yes consent for manual treatment Soft Tissue Mobilization Lumbar Body Location Lumbar paraspinals, QL, Glute Mobilization Type Strumming,Sustained Pressure,Trigger Point Release Body Position Sidelying Electric Stimulation Electric Stimulation Interferential Current (IFC) Body Location Low Back Intensity 16 Patient Position Sidelying Physical Therapy Assessment Impairments Impairments Activity Tolerance,Balance,Functional Activities, Functional Mobility,Gait,Pain,Posture,ROM,Sensation, Soft Tissue Mobility,Strength,Transfers Goals Three Detention Goal (LTG) Pt will demo improved Oswestry Score to 30% disability or better by DC for improved quality of life. LTG Duration 02/23/25 Two Automatic Machines Supervisor Goal (LTG) Pt will demo improved L knee flexion strength to 4+/5 by DC for improved posterior stability with ADLs. LTG Duration 02/23/25 One Short Term Goal (STG pt will be ind with HEP within 2 visits in order to ) progress toward termite treater therapy goals outside of therapy visits Detention Goal (LTG) Pt will demo improved pain symptoms from 6/10 at worst to 3/10 or better at worst by DC for improved quality of life. LTG Duration 02/23/25 Assessment Summary Assessment Good response to STM and IFC, feeling improved relief from pain. Continue sophia focus on mobility, strength, and function as tolerated. Physical Therapy Plan Frequency and Duration Frequency of 2x/Week Treatment Duration of 12 treatment (weeks) Plan of Care Start 12/01/24 Plan of Care End 02/23/25 Date Therapeutic Interventions Therapeutic Balance Training,Coordination Training,Gait Training, Interventions Home Exercise Program,Joint Mobilizations,Manual Therapy,Neuromuscular Re-education,Orthotic/Prosthetic Management,Patient/Caregiver Education,Self-Care/Home Management,Sensory Integration,Taping,Therapeutic Activities,Therapeutic Exercises Modalities Cold Pack/Ice Massage,Electric Stimulation,Hot Packs, Infrared Therapy,Iontophoresis,Ultrasound Next Visit Focus/Plan Next Note Type Treatment Note Next Visit Plan Next: Consider sidelying clamshell. review standing HEP (resisted sidesteps, Paloff) POC: Advance HEP for L hip strength, core stability and general mobility and balance.
--- NOTE | 2025-01-19 15:11 | PT.OTN ---
Current Diagnoses Unspecified mononeuropathy of left lower limb (01/19/25) Other chronic pain (01/19/25) Low back pain, unspecified (01/19/25) Pain in right toe(s) (01/19/25) Physical Therapy Treatment Note PT OP: Lower Back/Lower Extremity Start: 12/01/24 09:01 Freq: Status: Active Protocol: Document 01/19/25 14:33 DCW (Rec: 01/19/25 15:10 DCW [id number]) Out-Patient Physical Therapy Visit Information Visit Information Visit Type Treatment Note Visit Start Time 14:33 Visit Stop Time 15:15 Visit Number 9 Number of DRILLER BRAKE LINING Visits 0 Progress Note Due 02/04/25 Evaluation Information Evaluation Date 12/01/24 Precautions Precautions L knee bone on bone OP-PT Subjective Patient Comments Patient Comments A little tight on the left side today, my upper back was really tight last night. Still feels like e-stim has been helpful, but believes the body movements and getting things stronger has been the most helpful thing for him. Gym Equipment Therapeutic Ball Hip/knee flexion Exercise Details Resisted hip/knee flexion Ball Size/Color Red - 55 cm Lv 3 T-band Body Position Supine LTR Exercise Details LTR Ball Size/Color Red - 55 cm Body Position Supine Therapeutic Exercises Standing Exercises Hip Extension Standing Exercise Hip Extension Name Side bilateral Resistance Lv 1 resisted sidesteps Standing Exercise Resisted side-stepping Name Side bilateral Resistance Lvl 1 loop Equipment Used // bars Reps/Minutes 10' x4 Comments initial cues for upright posture, smaller step, eccentric control Manual Therapy Treatment Consent Patient gave verbal Yes consent for manual treatment Soft Tissue Mobilization Lumbar Body Location T/L paraspinals, QL Mobilization Type Strumming,Sustained Pressure,Trigger Point Release Body Position Sidelying Electric Stimulation Electric Stimulation Interferential Current (IFC) Body Location Low Back Intensity 16 Patient Position Sidelying Physical Therapy Assessment Impairments Impairments Activity Tolerance,Balance,Functional Activities, Functional Mobility,Gait,Pain,Posture,ROM,Sensation, Soft Tissue Mobility,Strength,Transfers Goals Three Elastic Tape Inserter Goal (LTG) Pt will demo improved Oswestry Score to 30% disability or better by DC for improved quality of life. LTG Duration 02/23/25 Two [facility] Goal (LTG) Pt will demo improved L knee flexion strength to 4+/5 by DC for improved posterior stability with ADLs. LTG Duration 02/23/25 One Short Term Goal (STG pt will be ind with HEP within 2 visits in order to ) progress toward care home therapy goals outside of therapy visits [facility] Goal (LTG) Pt will demo improved pain symptoms from 6/10 at worst to 3/10 or better at worst by DC for improved quality of life. LTG Duration 02/23/25 Assessment Summary Assessment Combination of STM, strengthening, and e-stim today appears to have worked pretty well, pt able to tolerate strengthening with less reported flare-up of low and mid back. Physical Therapy Plan Frequency and Duration Frequency of 2x/Week Treatment Duration of 12 treatment (weeks) Plan of Care Start 12/01/24 Date Plan of Care End 02/23/25 Date Therapeutic Interventions Therapeutic Balance Training,Coordination Training,Gait Training, Interventions Home Exercise Program,Joint Mobilizations,Manual Therapy,Neuromuscular Re-education,Orthotic/Prosthetic Management,Patient/Caregiver Education,Self-Care/Home Management,Sensory Integration,Taping,Therapeutic Activities,Therapeutic Exercises Modalities Cold Pack/Ice Massage,Electric Stimulation,Hot Packs, Infrared Therapy,Iontophoresis,Ultrasound Next Visit Focus/Plan Next Note Type Treatment Note Next Visit Plan Next: Consider sidelying clamshell. review standing HEP (resisted sidesteps, Paloff) POC: Advance HEP for L hip strength, core stability and general mobility and balance.
--- NOTE | 2025-01-28 16:03 | PT.OPPN ---
Current Diagnoses Unspecified mononeuropathy of left lower limb (01/28/25) Other chronic pain (01/28/25) Low back pain, unspecified (01/28/25) Pain in right toe(s) (01/28/25) Physical Therapy Progress Note PT OP: Lower Back/Lower Extremity Start: 12/01/24 09:01 Freq: Status: Active Protocol: Document 01/28/25 15:15 DCW (Rec: 01/28/25 16:02 DCW [id number]) Out-Patient Physical Therapy Visit Information Visit Information Visit Type Progress Note Visit Start Time 15:15 Visit Stop Time 16:00 Visit Number 10 Number of IMMIGRATION LAWYER Visits 0 Progress Note Due 02/23/25 Precautions Precautions L knee bone on bone OP-PT Subjective Patient Comments Patient Comments It's actually a good day today, but notes his knee is pretty bad. Gym Equipment Shuttle Recovery Unilateral Squats Resistance 37# Bilateral Squats Resistance 75# Therapeutic Ball Hip/knee flexion Exercise Details Resisted hip/knee flexion Ball Size/Color Red - 55 cm Lv 3 T-band Body Position Supine LTR Exercise Details LTR Ball Size/Color Red - 55 cm Body Position Supine Therapeutic Exercises Prone Exercises quadraped Prone Exercise Name Thread the needle, Bird-dog Comments 10x Electric Stimulation Electric Stimulation Interferential Current (IFC) Body Location Low Back Intensity 16 Patient Position Sidelying Physical Therapy Assessment Goals Three Extrusion Die Corrector Goal (LTG) Pt will demo improved Oswestry Score to 30% disability or better by DC for improved quality of life. LTG Duration 02/23/25 Two [facility] Goal (LTG) Pt will demo improved L knee flexion strength to 4+/5 by DC for improved posterior stability with ADLs. LTG Duration 02/23/25 One Short Term Goal (STG pt will be ind with HEP within 2 visits in order to ) progress toward superintendent terminal therapy goals outside of therapy visits Extrusion Die Corrector Goal (LTG) Pt will demo improved pain symptoms from 6/10 at worst to 3/10 or better at worst by DC for improved quality of life. LTG Duration 02/23/25 Assessment Summary Assessment Pt showing increased tolerance to activity, doing well with new strengthening exercises today. Does still demonstrate severe guarding through back and hips, limited by knee pain. Continue to focus on pain control , gentle mobility, strengthening, and functional movements. Physical Therapy Plan Frequency and Duration Frequency of 2x/Week Treatment Duration of 12 treatment (weeks) Plan of Care Start 12/01/24 Plan of Care End 02/23/25 Date Therapeutic Interventions Therapeutic Balance Training,Coordination Training,Gait Training, Interventions Home Exercise Program,Joint Mobilizations,Manual Therapy,Neuromuscular Re-education,Orthotic/Prosthetic Management,Patient/Caregiver Education,Self-Care/Home Management,Sensory Integration,Taping,Therapeutic Activities,Therapeutic Exercises Modalities Cold Pack/Ice Massage,Electric Stimulation,Hot Packs, Infrared Therapy,Iontophoresis,Ultrasound Next Visit Focus/Plan Next Note Type Treatment Note Next Visit Plan POC: Advance HEP for L hip strength, core stability and general mobility and balance.
--- NOTE | 2025-02-10 16:45 | PT.OTN ---
Current Diagnoses Unspecified mononeuropathy of left lower limb (02/10/25) Other chronic pain (02/10/25) Low back pain, unspecified (02/10/25) Pain in right toe(s) (02/10/25) Physical Therapy Treatment Note PT OP: Lower Back/Lower Extremity Start: 12/01/24 09:01 Freq: Status: Active Protocol: Document 02/10/25 10:51 NBM (Rec: 02/10/25 11:35 NBM Laptop) Out-Patient Physical Therapy Visit Information Visit Information Visit Type Treatment Note Visit Start Time 10:51 Visit Stop Time 11:47 Visit Number 11 Number of FILM RENTAL CLERK Visits 1 Progress Note Due 02/23/25 Evaluation Information Evaluation Date 12/01/24 Precautions Precautions L knee bone on bone OP-PT Subjective Patient Comments Patient Comments Benjamin reports his knee is feeling better so he's not using the cane today. He got MRI last week which he says shows four lumbar discs compressed from L2 to S1 .. He's been sleeping a lot more lately, hasn't been exercising as much and has been eating more - could be some depression, but he feels better to have MRI information. Therapeutic Exercises Supine Exercises LTR Supine Exercise Name verbal HEP review Side bilateral Comments edu can do in bed. Standing Exercises Hip Extension Standing Exercise Hip Extension Name Side bilateral Resistance Lv 1 Reps/Minutes 2x10 ea Comments cues for straight leg for hip resisted sidesteps Standing Exercise Resisted side-stepping Name Side bilateral Resistance Lvl 1 loop Equipment Used // bars Reps/Minutes 12' x2 ea Comments initial cues for upright posture, smaller step; positive feedback response Manual Therapy Treatment Consent Patient gave verbal Yes consent for manual treatment Soft Tissue Mobilization Lumbar Body Location L>R T/L paraspinals, L QL Mobilization Type Strumming,Sustained Pressure,Trigger Point Release, Other Intensity/Depth Moderate Body Position Sidelying Comments pillow supports between LEs. Manual pin and stretch to L QL. Self-Care/Home Management Treatment Education Patient Education Home Exercise Program,Pain Management,Safety Other Education Education to pt re: cessation of smoking for overall health and implications for rehabilitation; pt plans to continue working with psychiatrist regarding smoking cessation. Electric Stimulation Electric Stimulation Interferential Current (IFC) Body Location Low Back Intensity 24 Patient Position Sidelying Comments pillow supports between LEs, murillo and all needs within reach. Physical Therapy Assessment Goals Three Nursing Home Goal (LTG) Pt will demo improved Oswestry Score to 30% disability or better by DC for improved quality of life. LTG Duration 02/23/25 Two Nursing Home Goal (LTG) Pt will demo improved L knee flexion strength to 4+/5 by DC for improved posterior stability with ADLs. LTG Duration 02/23/25 One Short Term Goal (STG pt will be ind with HEP within 2 visits in order to ) progress toward penitentiary therapy goals outside of therapy visits Professor Of Food Biochemistry Goal (LTG) Pt will demo improved pain symptoms from 6/10 at worst to 3/10 or better at worst by DC for improved quality of life. LTG Duration 02/23/25 Assessment Summary Assessment Treatment focus on hip strengthening and pain management with manual therapy and IFC. Benjamin requires initial cues with resisted sidesteps for upright posture and smaller steps and reports positive feedback response. He is reminded LTR can be performed in bed on days when he is in bed. Physical Therapy Plan Frequency and Duration Frequency of 2x/Week Treatment Duration of 12 treatment (weeks) Plan of Care Start 12/01/24 Date Plan of Care End 02/23/25 Date Next Visit Focus/Plan Next Note Type Treatment Note Next Visit Plan POC: Advance HEP for L hip strength, core stability and general mobility and balance.
--- NOTE | 2025-02-16 12:17 | PT.OPDS ---
Current Diagnoses Unspecified mononeuropathy of left lower limb (02/16/25) Other chronic pain (02/16/25) Low back pain, unspecified (02/16/25) Pain in right toe(s) (02/16/25) Visit Care Team Role Provider Type Karolyn Kamara DO Attending Provider Physician Family Provider Primary Care Provider Referring Provider Specialty: Family Practice Address: [address] [place] [address], [address], [facility] Email: [email or web address] Visit Number Visit Number 12 Discharge Summary PT OP: Lower Back/Lower Extremity Start: 12/01/24 09:01 Freq: Status: Active Protocol: Document 02/16/25 11:35 DCW (Rec: 02/16/25 12:11 DCW [id number]) Out-Patient Physical Therapy Visit Information Visit Information Visit Type Treatment Note Visit Start Time 11:35 Visit Stop Time 12:15 Visit Number 12 Number of BOX TOE CEMENTER Visits 0 Progress Note Due 02/23/25 Evaluation Information Evaluation Date 12/01/24 Precautions Precautions L knee bone on bone OP-PT Subjective Patient Comments Patient Comments Pt reports he is feeling pretty good today, has been riding his mountain bike more. Still hurts like hell sometimes. Patient Questionnaires Oswestry Low Back Index Oswestry Score 4/50 = 8% Gym Equipment Shuttle Recovery Unilateral Squats Resistance 37# Bilateral Squats Resistance 75# Therapeutic Exercises Sitting Exercises Trunk Extension Sitting Exercise Resisted Trunk Extension Name Resistance Lv 3 Standing Exercises RDL Standing Exercise RDL Name Resistance Lv 3 Hip Extension Standing Exercise Hip Extension Name Side bilateral Resistance Lv 1 Reps/Minutes 2x10 ea Comments cues for straight leg for hip resisted sidesteps Standing Exercise Resisted side-stepping Name Side bilateral Resistance Lvl 1 loop Equipment Used // bars Reps/Minutes 12' x2 ea Comments initial cues for upright posture, smaller step; positive feedback response Physical Therapy Assessment Goals Three Audiovisual Equipment Operator Goal (LTG) Pt will demo improved Oswestry Score to 30% disability or better by DC for improved quality of life. 02/16/25: 8% LTG Duration Met Two Senior Living Goal (LTG) Pt will demo improved L knee flexion strength to 4+/5 by DC for improved posterior stability with ADLs. LTG Duration 02/23/25 One Short Term Goal (STG pt will be ind with HEP within 2 visits in order to ) progress toward long chain beamer therapy goals outside of therapy visits STG Duration Met Senior Living Goal (LTG) Pt will demo improved pain symptoms from 6/10 at worst to 3/10 or better at worst by DC for improved quality of life. 02/16/25: 3/10 LTG Duration Met Assessment Summary Assessment Discussed getting new auth to continue with PT, patient stated he was feeling pretty good, can strengthening on his own, and is requesting discharge at this time. Pt will be discharged from skilled PT. Physical Therapy Plan Frequency and Duration Frequency of 2x/Week Treatment Duration of 12 treatment (weeks) Plan of Care Start 12/01/24 Date Plan of Care End 02/23/25 Date Therapeutic Interventions Therapeutic Balance Training,Coordination Training,Gait Training, Interventions Home Exercise Program,Joint Mobilizations,Manual Therapy,Neuromuscular Re-education,Orthotic/Prosthetic Management,Patient/Caregiver Education,Self-Care/Home Management,Sensory Integration,Taping,Therapeutic Activities,Therapeutic Exercises Modalities Cold Pack/Ice Massage,Electric Stimulation,Hot Packs, Infrared Therapy,Iontophoresis,Ultrasound Discharge Physical Therapy Discharge Reasons Patient Request Next Visit Focus/Plan Next Note Type Discharge Summary
== END 2025-02-17 12:12 | disposition home or self-care (01) ==
LOC: PHYS 11:30
PROVIDERS: Family Provider Family Medicine; PCP Family Medicine; Referring Provider Family Medicine; Visit Provider Family Medicine
DX: M54.50 Low back pain, unspecified (principal); G89.29 Other chronic pain; M79.674 Pain in right toe(s); G57.92 Unspecified mononeuropathy of left lower limb
CPT/HCPCS: 97014; 97110; 97112; 97140; 97162; G0283

== ENCOUNTER 2025-03-05 06:37 | Emergency (ER) | payer OTHER, SELFPAY ==
[2025-03-05] VITALS (10 sets, daily range): BP systolic 120–144; BP diastolic 68–82; PULSE 67–77; RESP 16–25; TEMP 36.1–36.9; O2SAT 92–97; BMI 31.4
--- NOTE | 2025-03-05 07:03 | ED.URI ---
HPI - URI/Sore Throat General Chief Complaint: Upper Respiratory Symptoms Stated Complaint: Low oxygen 80/Congestion Time Seen by Provider: 03/05/25 06:55 Source: patient and family Mode of arrival: Ambulatory History of Present Illness HPI Narrative: 50-year-old male history of schizophrenia, paranoia, bipolar, insomnia, anxiety, presents with increasing shortness of breath, dyspnea on exertion, cough with brown sputum production over the last month but worse in the last week. His roommate as COPD and checked his pulse oximeter was reading in the low 80s and decided to give him 2 DuoNeb treatments for which I only came up to 89. He endorses chills but denies any fever, bodyaches, sore throat, chest pain, diaphoresis, nausea, vomiting, diarrhea, back pain, abdominal pain, leg pain, or leg swelling. Other than what is stated 14 point review of system is negative. Related Data Home Medications ?Medication ?Instructions ?Recorded ?Confirmed nicotine 14 mg/24 hr daily 1 patch topical DAILY 01/07/25 01/13/25 transdermal patch omeprazole 20 mg capsule,delayed 20 mg PO DAILY PRN 01/13/25 release Previous Rx's ?Medication ?Instructions ?Recorded nicotine (polacrilex) 2 mg buccal 2 mg buccal Q2-4H PRN nicotine 07/20/24 mini lozenge cravings #81 ea nicotine 21 mg/24 hr daily 1 patch transdermal DAILY #28 ea 07/20/24 transdermal patch divalproex 500 mg tablet,delayed 500 mg PO 3XD #90 tabs 12/14/24 release lithium carbonate 300 mg See Rx Instructions .Route 12/14/24 tablet,extended release .COMPLEX #90 tabs cyclobenzaprine 5 mg tablet 5 mg PO TID PRN muscle spasm #21 01/13/25 tabs olanzapine 15 mg tablet 15 mg PO BEDTIME #30 tabs 02/08/25 olanzapine 5 mg tablet 5 mg PO QAM #30 tabs 02/08/25 gabapentin 100 mg capsule 200 mg (2 x 100 mg) PO TID 02/15/25 restless leg syndrome #180 caps fluoxetine 40 mg capsule 40 mg PO DAILY #90 caps 02/22/25 albuterol sulfate 90 mcg/actuation 1 inh inhalation Q4-6H PRN 03/05/25 breath activated powder inhaler shortness of breath or wheezing #1 ea amoxicillin 875 mg-potassium 1 tab PO Q12H #14 tabs 03/05/25 clavulanate 125 mg tablet azithromycin 250 mg tablet 250 mg PO DAILY 4 days #4 tabs 03/05/25 prednisone 20 mg tablet 20 mg PO BID #10 tabs 03/05/25 Allergies Allergy/AdvReac Type Severity Reaction Status Date / Time No Known Drug Allergies Allergy Verified 01/13/25 12:44 Review of Systems Review of Systems ROS Unobtainable: All systems reviewed & are unremarkable except as noted in HPI and below Patient History Medical History (Updated 03/05/25 @ 11:34 by Benjamin Lancaster DO) Tobacco use disorder Anxiety disorder, unspecified Schizoaffective disorder, bipolar type Left fibular fracture Left ankle sprain Anxiety attack Psychosis (02/09/15) Vision disorder Marijuana abuse Schizophrenia History of bipolar disorder Chicken pox (~1987) Depression (02/09/15) Anxiety Surgical History (Updated 06/06/23 @ 18:59 by Nadira Chaparro) Anesthesia History of hernia repair (~1985) History of ankle surgery (~2017) H/O left knee surgery (~1998) Family History (Updated 06/06/23 @ 19:00 by Nadira Chaparro) Grandfather Diabetes mellitus History of heart disease Grandmother Cancer Social History Smoking Status: Current every day smoker Smoking Status: Current every day smoker tobacco type: cigarettes alcohol intake frequency: holidays/special occasions only Exam Narrative Exam Narrative: GENERAL: [50] year old patient appears stated age. Well-developed patient, in mild distress. HEAD: Atraumatic. Normocephalic. EYES: Pupils equal round and reactive. Extraocular motions intact. No scleral icterus. No injection or drainage. ENT: Nose without bleeding, purulent drainage. Throat without erythema, tonsillar hypertrophy or exudate. Airway patent. NECK: Trachea midline. Non tender CARDIOVASCULAR: Regular rate and rhythm without murmurs, gallops, or rubs. RESPIRATORY: Decreased breath sounds with wheezes throughout GASTROINTESTINAL: Abdomen soft, non-tender, nondistended. EXTREMITIES: No edema or joint tenderness. BACK: Nontender without deformity or crepitance. No flank tenderness. NEURO: AOx3. SKIN: No rash or erythema of visible areas Initial Vital Signs Initial Vital Signs: Vital Signs Temperature 97.0 F L 03/05/25 06:43 Pulse Rate 71 03/05/25 06:43 Respiratory Rate 16 03/05/25 06:43 Blood Pressure 132/73 03/05/25 06:43 Pulse Oximetry 94 03/05/25 06:43 Oxygen Delivery Method Room Air 03/05/25 06:43 Course Orders Ordered: ED Orders 03/05/25 07:02 EKG-12 Lead Stat RT Consult Eval and Treat NOW 03/05/25 07:04 CT angio chest PE protocol Stat 03/05/25 07:18 BNP [NT-proBNP (BNP-Adult 18+)] Stat Complete Blood Count AUTO DIFF Stat Comprehensive Metabolic Panel Stat Lactate (Lactic Acid) Stat Lipase Stat PTT Partial Thromboplastin Tucker Stat Procalcitonin Stat Prothrombin Time INR Stat Troponin I Stat 03/05/25 07:28 Covid-19 + FLU A/B + RSV - PCR Stat 03/05/25 08:10 Blood Culture Stat 03/05/25 08:37 Venous Blood Gas STAT 03/05/25 09:01 Venous Blood Gas Routine 03/05/25 10:26 Troponin I Stat Ondansetron HCl (Ondansetron 4 Mg/2 Ml Inj) 4 mg IV NOW PRN PRN Reason: Nausea And Vomiting Ondansetron HCl (Ondansetron 4 Mg Odt) 4 mg PO NOW PRN PRN Reason: Nausea And Vomiting Discontinued Medications Albuterol/Ipratropium (Albuterol/Ipratropium 3 Ml Ampul) 3 ml INH NOW ONE Stop: 03/05/25 07:08 Last Admin: 03/05/25 07:10 Dose: 3 ml Documented By: OANH Lactated Ringer's (Lactated Ringers) 2,653.53 mls @ 1,769.02 mls/hr 30 ml/kg infuse over 90 min (2653.53 ml) IV NOW ONE Stop: 03/05/25 08:31 Last Infusion: 03/05/25 09:52 Dose: Infused Documented By: Admin: 03/05/25 07:42 Dose: 1,769.02 mls/hr Documented By: OMAR Ceftriaxone Sodium 1,000 mg/ (Sodium Chloride) 100 mls @ 200 mls/hr IV NOW ONE Stop: 03/05/25 07:03 Last Infusion: 03/05/25 08:02 Dose: Infused Documented By: Admin: 03/05/25 07:32 Dose: 200 mls/hr Documented By: OMAR Azithromycin 500 mg/ Dextrose 250 mls @ 250 mls/hr IV NOW ONE Stop: 03/05/25 07:03 Last Infusion: 03/05/25 09:52 Dose: Infused Documented By: Admin: 03/05/25 08:15 Dose: 250 mls/hr Documented By: OMAR Methylprednisolone (Methylprednisolone Succ 125 Mg/2 Ml Vial) 125 mg IV NOW ONE Stop: 03/05/25 07:03 Last Admin: 03/05/25 07:38 Dose: 125 mg Documented By: OMAR Vital Signs Vital signs: Vital Signs - 8 hr 03/05/25 06:43 03/05/25 07:10 03/05/25 07:15 Temperature 97.0 F L Pulse Rate 71 67 67 Respiratory Rate 16 20 Blood Pressure 132/73 Pulse Oximetry 94 93 97 Oxygen Delivery Method Room Air Room Air Oxygen Flow Rate 0 Fraction of Inspired Oxygen 03/05/25 07:22 03/05/25 07:22 03/05/25 07:30 Temperature Pulse Rate 71 71 Respiratory Rate Blood Pressure 120/68 Pulse Oximetry 92 93 Oxygen Delivery Method Oxygen Flow Rate Fraction of Inspired Oxygen 03/05/25 08:00 03/05/25 08:19 03/05/25 08:19 Temperature Pulse Rate 69 73 Respiratory Rate 21 25 H Blood Pressure 144/81 H Pulse Oximetry 93 93 Oxygen Delivery Method Oxygen Flow Rate Fraction of Inspired Oxygen 03/05/25 08:30 03/05/25 08:30 03/05/25 11:00 Temperature Pulse Rate 67 77 Respiratory Rate 20 Blood Pressure 131/82 Pulse Oximetry 94 92 Oxygen Delivery Method Oxygen Flow Rate Fraction of Inspired Oxygen 03/05/25 11:00 Temperature Pulse Rate Respiratory Rate Blood Pressure 132/78 Pulse Oximetry Oxygen Delivery Method Oxygen Flow Rate Fraction of Inspired Oxygen MDM - URI/Sore Throat Lab Data 03/05/25 07:18 03/05/25 07:18 Labs: Lab Results 03/05/25 03/05/25 03/05/25 Range/Units 07:18 07:28 09:01 WBC 10.3 (4.5-11.0) X10^3/uL RBC 4.73 (4.5-5.9) X10^6/uL Hgb 14.5 (13.5-17.5) g/dL Hct 42.4 (41-53) % MCV 89.7 (80-100) fL MCH 30.8 (26-34) PG MCHC 34.3 (30-36) % RDW 13.7 (11.6-14.8) % Plt Count 261 (150-400) X10^3/uL Neut % (Auto) 73.0 (50-75) % Lymph % (Auto) 15.5 L (25-40) % [place] % (Auto) 5.3 (3-14) % Eos % (Auto) 2.5 (2-4) % Baso % (Auto) 3.7 H (0-2) % Neut # (Auto) 7500 H (9375-0121) /uL Lymph # (Auto) 1600 (9066-1095) /uL [place] # (Auto) 500 (0-900) /uL Eos # (Auto) 300 (0-450) /uL Baso # (Auto) 400 H (0-100) /uL PT 10.0 (9.4-12.5) SECONDS INR 0.9 (0.9-1.3) APTT 30 (25.1-36.5) SECONDS VBG pH 7.39 (7.33-7.43) VBG pCO2 51.9 H (45-50) mmHg VBG pO2 33 L (35-45) mmHg VBG HCO3 31 H (24-28) mmol/L VBG Total CO2 30 H (24-29) mmol/L VBG O2 Saturation 61 L (70-75) % VBG Base Excess 4.9 H (0-4) mmol/L Sodium 135 L (137-145) mmol/L Potassium 4.2 (3.4-5.1) mmol/L Chloride 102 (98-107) mmol/L Carbon Dioxide 25 (22-32) mmol/L BUN 12 (9-20) mg/dL Creatinine 0.68 (0.66-1.25) mg/dL Estimated GFR > 60 (>60) mL/min BUN/Creatinine Ratio 17.6 (6-22) Glucose 253 H (70-99) mg/dL Lactate 1.9 (0.7-2.1) mmol/L Calcium 9.0 (8.4-10.2) mg/dL Total Bilirubin 0.4 (0.2-1.3) mg/dL AST 30 (17-59) IU/L ALT 35 (<50) IU/L Alkaline Phosphatase 62 (38-126) U/L Troponin I < 0.012 (0.01-0.034) ng/mL NT-Pro-B Natriuret Pep 29 (<125) pg/mL Total Protein 7.0 (6.3-8.2) g/dL Albumin 4.4 (3.5-5.0) g/dL Globulin 2.6 (1.7-4.1) g/dL Albumin/Globulin Ratio 1.7 (1.0-2.8) Lipase 141 (23-300) U/L Procalcitonin 0.054 (<0.5) ng/mL SARS-CoV-2 (PCR) Negative (Negative) Influenza A (RT-PCR) Flu a negative (NEGATIVE) Influenza B (RT-PCR) Flu b negative (NEGATIVE) RSV (PCR) Negative (Negative) 03/05/25 Range/Units 10:26 WBC (4.5-11.0) X10^3/uL RBC (4.5-5.9) X10^6/uL Hgb (13.5-17.5) g/dL Hct (41-53) % MCV (80-100) fL MCH (26-34) PG MCHC (30-36) % RDW (11.6-14.8) % Plt Count (150-400) X10^3/uL Neut % (Auto) (50-75) % Lymph % (Auto) (25-40) % [place] % (Auto) (3-14) % Eos % (Auto) (2-4) % Baso % (Auto) (0-2) % Neut # (Auto) (2942-4322) /uL Lymph # (Auto) (5785-4227) /uL [place] # (Auto) (0-900) /uL Eos # (Auto) (0-450) /uL Baso # (Auto) (0-100) /uL PT (9.4-12.5) SECONDS INR (0.9-1.3) APTT (25.1-36.5) SECONDS VBG pH (7.33-7.43) VBG pCO2 (45-50) mmHg VBG pO2 (35-45) mmHg VBG HCO3 (24-28) mmol/L VBG Total CO2 (24-29) mmol/L VBG O2 Saturation (70-75) % VBG Base Excess (0-4) mmol/L Sodium (137-145) mmol/L Potassium (3.4-5.1) mmol/L Chloride (98-107) mmol/L Carbon Dioxide (22-32) mmol/L BUN (9-20) mg/dL Creatinine (0.66-1.25) mg/dL Estimated GFR (>60) mL/min BUN/Creatinine Ratio (6-22) Glucose (70-99) mg/dL Lactate (0.7-2.1) mmol/L Calcium (8.4-10.2) mg/dL Total Bilirubin (0.2-1.3) mg/dL AST (17-59) IU/L ALT (<50) IU/L Alkaline Phosphatase (38-126) U/L Troponin I < 0.012 (0.01-0.034) ng/mL NT-Pro-B Natriuret Pep (<125) pg/mL Total Protein (6.3-8.2) g/dL Albumin (3.5-5.0) g/dL Globulin (1.7-4.1) g/dL Albumin/Globulin Ratio (1.0-2.8) Lipase (23-300) U/L Procalcitonin (<0.5) ng/mL SARS-CoV-2 (PCR) (Negative) Influenza A (RT-PCR) (NEGATIVE) Influenza B (RT-PCR) (NEGATIVE) RSV (PCR) (Negative) Urine Dip Bedside Urine Glucose 100 mg/dl Bedside Urine Bilirubin - Negative Bedside Urine Ketone - Negative Urine Specific [place] 1.010 Bedside Urine Occult Blood - Negative Bedside Urine pH 6.0 Bedside Urine Protein - Negative Bedside Urine Urobilinogen - Negative Bedside Urine Nitrite - Negative Bedside Urine Leukocytes - Negative Esterase Imaging Data CT scan - chest: Radiologist's Impression: [address] [address] [address] Scan Report Signed Patient: Stoney Vidal MR#: [id number] : 1975 Acct:[id number] Age/Sex: 50 / M Date of Service: 03/05/25 Loc: ED Accession Number: [id number] Procedure: CT angio chest PE protocol Ordering Provider: Benjamin Lancaster D.O. PROCEDURE: CT ANGIO CHEST PE PROTOCOL INDICATIONS: sob 02 sats 80s TECHNIQUE: After the administration of intravenous contrast, 2 mm thick sections acquired from the pulmonary apices to the posterior costophrenic angles. 3-dimensional maximum intensity projection (MIP) coronal and sagittal reformats were then acquired through the thorax. For radiation dose reduction, the following was used: automated exposure control, adjustment of mA and/or kV according to patient size. COMPARISON: None. FINDINGS: Image quality: Mildly limited by bolus timing. Pulmonary arteries: The bolus of the contrast injection is suboptimal. The main pulmonary artery measures 200 Hounsfield units. Pulmonary artery densities are greater than 250 Hounsfield units are considered to be ideal for evaluation of pulmonary embolism. However, no large or central pulmonary emboli are seen on these images. No pulmonary emboli are seen more distally, although sensitivity for detection of such is limited on this study. Lower Neck: No enlarged lymph nodes. Thyroid: No thyroid nodules which require sonographic follow up, per consensus guidelines. Axillae: No enlarged lymph nodes. Chest Wall: Unremarkable. Bones: Unremarkable. Lungs and Pleura: No pneumothorax or pleural effusions. No consolidation or suspicious nodules. Heart: Heart size is seen at the upper limits of normal. No pericardial effusion. Thoracic Vessels: No aortic aneurysm. Mediastinum and Tenisha: No enlarged lymph nodes. Esophagus: No wall thickening. No hiatal hernia. Upper Abdomen: An enlarged of fatty infiltrated liver is seen. The visualized portions of the upper abdominal structures are otherwise unremarkable for imaging technique. IMPRESSION: No large or central pulmonary embolus. Scattered areas of ground-glass opacity can be seen. Please consider mild pulmonary edema. The heart size is at the upper limits of normal. Additional findings: Enlarged, fatty infiltrated liver. Dictated by: Franklin Jensen M.D. on 03/05/2025 at 7:31 Approved by: Franklin Jensen M.D. on 03/05/2025 at 7:33 ECG Data Interpretation: NSR HR 72 CT 174 QRS [address]-t wave change Change from 09/26/22 MDM Narrative Medical decision making narrative: All lab work, vital signs, nurse triage note, medication list, previous ER visits, and all imaging studies reviewed. CTA showed no large or central pulmonary embolus. Scattered area of ground-glass opacity can be seen. Please consider mild pulmonary edema. Heart size is at the upper limits of normal. Enlarged fatty infiltrated liver. WBC 10.3 hemoglobin 14.5 platelets 261 INR 0.9 sodium 135 potassium 4 point chloride 102 CO2 25 BUN 12 creatinine 0.68 glucose 253 lactic acid 1.9 LFTs not lipase 141 procalcitonin 0.054. Patient given Rocephin Zithromax DuoNebs and Solu-Medrol here. Patient will be discharged on Augmentin and Zithromax and prednisone and albuterol inhaler. Differential diagnosis PE pneumonia CHF STEMI NSTEMI COVID flu RSV Discharge Plan Departure Patient Disposition: Home Clinical Impression: Pneumonia Instructions: DI for Pneumonia -- Adult Activity Restrictions/Additional Instructions: Return with new or worsening symptoms. Follow up PCP in 1-2 weeks if no improvement in symptoms. Take medicines as directed. Prescriptions: New amoxicillin-pot clavulanate 875-125 mg tablet 1 tab PO Q12H Qty: 14 0RF azithromycin 250 mg tablet 250 mg PO DAILY 4 Days Qty: 4 0RF prednisone 20 mg tablet 20 mg PO BID Qty: 10 0RF albuterol sulfate 90 mcg/actuation aerosol powdr breath activated 1 inh inhalation Q4-6H PRN (Reason: shortness of breath or wheezing) Qty: 1 0RF No Action nicotine 14 mg/24 hr patch 24 hour 1 patch topical DAILY nicotine 21 mg/24 hr patch 24 hour 1 patch transdermal DAILY Qty: 28 3RF Rx Instructions: Remove one hour before bedtime nicotine (polacrilex) 2 mg mini lozenge 2 mg buccal Q2-4H PRN (Reason: nicotine cravings) Qty: 81 2RF lithium carbonate 300 mg tablet extended release See Rx Instructions .ROUTE .COMPLEX Qty: 90 2RF Rx Instructions: 300mg PO QAM and 600mg PO QHS divalproex 500 mg tablet,delayed release (DR/EC) 500 mg PO 3XD Qty: 90 2RF olanzapine 5 mg tablet 5 mg PO QAM Qty: 30 2RF olanzapine 15 mg tablet 15 mg PO BEDTIME Qty: 30 2RF gabapentin 100 mg capsule 200 mg PO TID Qty: 180 3RF Rx Instructions: Take two capsules by mouth three times a day for restless leg. fluoxetine 40 mg capsule 40 mg PO DAILY Qty: 90 1RF omeprazole 20 mg capsule,delayed release(DR/EC) 20 mg PO DAILY PRN cyclobenzaprine 5 mg tablet 5 mg PO TID PRN (Reason: muscle spasm) Qty: 21 0RF Referrals: Karolyn Kamara DO [Primary Care Provider, Family Practice] Stand Alone Forms: Patient Portal/API
[2025-03-05] MEDS: ALBUTEROL/IPRATROPIUM 3 ML AMPUL INH (07:10)
[2025-03-05 07:38] LABS: Add Manual Diff / Slide Review NO; Hematocrit 42.4 % (41-53); Hemoglobin 14.5 g/dL (13.5-17.5); Lymphocytes Absolute Auto 1600 /uL (1100-4500); Mean Corpuscular HGB Conc 34.3 % (30-36); Mean Corpuscular Hemoglobin 30.8 PG (26-34); Mean Corpuscular Volume 89.7 fL (80-100); Platelet Count 261 X10^3/uL (150-400)
[2025-03-05] MEDS: methylPREDNISolone succ 125 MG/2 ML VIAL IV (07:38)
[2025-03-05] MEDS: LACTATED RINGERS 2,653.53 ML 1769.02 ML IV (07:42)
[2025-03-05 07:45] LABS: INR 0.9 (0.9-1.3); Prothrombin Time 10.0 SECONDS (9.4-12.5)
[2025-03-05 07:47] LABS: PTT Partial Thromboplastin Tim 30 SECONDS (25.1-36.5)
[2025-03-05 07:50] LABS: Lactate (Lactic Acid) 1.9 mmol/L (0.7-2.1)
--- NOTE | 2025-03-05 07:50 | EKG_ITS ---
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
[2025-03-05 07:51] LABS: Alanine Aminotransferase 35 IU/L (<50); Albumin 4.4 g/dL (3.5-5.0); Albumin Globulin Ratio 1.7 (1.0-2.8); Alkaline Phosphatase 62 U/L (38-126); Blood Urea Nitrogen 12 mg/dL (9-20); Calcium 9.0 mg/dL (8.4-10.2); Carbon Dioxide 25 mmol/L (22-32); Chloride 102 mmol/L (98-107); Estimated Glomerular Filt Rate > 60 mL/min (>60); Globulin 2.6 g/dL (1.7-4.1); Glucose 253 mg/dL (70-99); HEMOLYSIS < 15 (0-50); Lipase 141 U/L (23-300); Potassium 4.2 mmol/L (3.4-5.1); Sodium 135 mmol/L (137-145); Total Protein 7.0 g/dL (6.3-8.2)
[2025-03-05 08:08] LABS: Procalcitonin 0.054 ng/mL (<0.5)
[2025-03-05 08:13] LABS: Influenza A - CEPHEID Flu A NEGATIVE (NEGATIVE); Influenza B - CEPHEID Flu B NEGATIVE (NEGATIVE)
[2025-03-05] MEDS: AZITHROMYCIN 500 MG in DEXTROSE 5% IN WATER 250 ML 250 MG IV (08:15)
[2025-03-05 08:23] LABS: COVID-19 CEPHEID 4-PLEX PCR Negative (Negative)
--- NOTE | 2025-03-05 08:41 | PC.NURSE ---
pt taken off of O2 per Dr. Miller request - reports wanting a VBG on room air. Pt denies feeling short of breath
[2025-03-05 09:07] LABS: Base Excess VBG 4.9 mmol/L (0-4); HCO3 VBG 31 mmol/L (24-28); Oxygen Saturation VBG 61 % (70-75); PCO2 VBG 51.9 mmHg (45-50); PO2 VBG 33 mmHg (35-45); Total CO2 VBG 30 mmol/L (24-29); pH VBG 7.39 (7.33-7.43)
[2025-03-05 09:16] LABS: NT-proBNP (BNP-Adult 18+) 29 pg/mL (<125); Troponin I < 0.012 ng/mL (0.01-0.034)
[2025-03-05 10:57] LABS: Troponin I < 0.012 ng/mL (0.01-0.034)
== END 2025-03-05 11:55 | disposition home or self-care (01) ==
PROVIDERS: Emergency Provider Family Medicine; Family Provider Family Medicine; PCP Family Medicine
DX: J18.9 Pneumonia, unspecified organism (principal); R06.02 Shortness of breath; F17.200 Nicotine dependence, unspecified, uncomplicated
CPT/HCPCS: 36415; 71275; 80053; 81003; 82805; 83605; 83690; 83880; 84145; 84484; 85025; 85610; 85730; 87040; 87637; 93005; 94640; 96365; 96366; 96367; 96375; 99284; J0696; J2919; J7050; J7060; J7120; Q9967

== ENCOUNTER → 2025-03-29 07:07 | Outpatient (CLI) | payer OTHER, SELFPAY ==
--- NOTE | 2025-03-29 07:08 | DI.RAD.S_ITS ---
PROCEDURE: XR CHEST 2V INDICATIONS: f/u PNA TECHNIQUE: 2 views of the chest were acquired. COMPARISON: None. FINDINGS: Surgical changes and devices: None. Lungs and pleura: Streaky opacity at the left lung base. No pleural effusions or pneumothorax. Mediastinum: Mediastinal contours are normal. Heart size is normal. Bones and chest wall: No suspicious bony abnormalities. Soft tissues appear unremarkable. IMPRESSION: Left lung base streaky opacity favored to represent atelectasis versus resolving pneumonia. No priors are available for comparison. Approved by: Sweta Conklin M.D.,Ph.D. on 03/30/2025 at 0:40
[2025-03-29 08:13] LABS: Hemoglobin A1C% w Est Avg Glu 10.4 % (4.0-6.0)
== END ==
PROVIDERS: Family Provider Family Medicine; PCP Family Medicine; Referring Provider Family Medicine; Visit Provider Family Medicine
DX: J18.9 Pneumonia, unspecified organism (principal); K76.0 Fatty (change of) liver, not elsewhere classified; R73.03 Prediabetes
CPT/HCPCS: 36415; 71046; 83036